=== PATIENT | male | born 1970 | race Caucasian/White ===

== ENCOUNTER 2019-10-20 06:57 | Outpatient (CLI) | payer BC ==
--- NOTE | 2019-10-20 08:23 | ULT ---
Ultrasound hepatic Doppler duplex: 10/20/2019 HISTORY: 49-year-old male with cirrhosis. TECHNIQUE: Grayscale, color-flow, and spectral analysis, of liver and associated major vessels. FINDINGS: There is signal dropout, such that there is poor visualization of intra-abdominal structures, includi ng right lobe of liver, nonvisualization of inferior vena cava, and nonvisualization of the pancreas. Gallbladder: Surgically absent Common duct: 4 mm. Liver: Nodular margins. Small right lobe. Prominent left lobe. Echogenicity within normal limits. Spleen: 14 x 5.7 x 5.9 cm. Estimated volume 245 mL. Normal hilar concavity maintained but with slight lobulation. Hepatopetal flow demonstrated in splenic vein and main portal vein. Flow demonstrated in hepatic veins. Flow demonstrated in hepatic artery, with weak signal. No free fluid identified in upper abdomen. IMPRESSION: 1. Cirrhosis. 2. Borderline or mild splenomegaly. 3. Status post cholecystectomy.
== END 2019-10-20 06:58 | disposition home or self-care (01) ==
LOC: BICULT 06:57
PROVIDERS: ATTEND Internal Medicine Gastroenterology
DX: R13.19 Other dysphagia (principal); K74.60 Unspecified cirrhosis of liver; Z90.49 Acquired absence of other specified parts of digestive tract
CPT/HCPCS: 76705

== ENCOUNTER → 2020-11-06 | Day surgery (SDC) | payer OTHER ==
[2020-11-03 14:16] VITALS: BMI 44.4
[~2020-11-06] MED LIST: Lidocaine 1% PF 5 ML VIAL ONE; Sodium Bicarbonate 2.5 MEQ/5 ML VIAL ONE
[2020-11-06 08:25] LABS: #Eosinphils 0.3 thou/uL (0.0-0.7); #Monocytes 0.3 thou/uL (0.11-0.59); %Basophils 1.1 % (0.0-1.0); %Lymphocytes 26.8 % (21.0-51.0); %Monocytes 7.5 % (0.0-10.0); %Neutrophils 56.7 % (42.0-75.0); Mean Corpuscular HGB CONC 33.9 g/dL (32.0-36.0); Mean Corpuscular Hemoglobin 34.5 pg (27.0-31.0); Platelet Count 138 thou/uL (130-400); RBC Distribution Width 12.9 % (11.5-14.5); Red Blood Cell (RBC) Count 3.48 mill/uL (4.70-6.10); White Blood Cell (WBC) Count 3.6 thou/uL (4.8-10.8)
[2020-11-06 08:29] LABS: INR-International Normal Ratio 1.1; PTT 35.4 sec (22.9-36.1); Prothrombin Time 13.8 sec (12.0-14.7)
[2020-11-06 10:25] VITALS: TEMP 97.8
[2020-11-06 10:32] VITALS: BP 133/73
[2020-11-06 12:52] LABS: RBC Count-Automated (BF) 1998 /cu.mm; WBC/Nucleated-Auto (BF) 206 uL
[2020-11-06 13:00] LABS: BF Color Pink; Body Fluid Source Ascites Body Fluid; Clarity Hazy (Clear); Tube # EDTA
[2020-11-06 13:28] LABS: BF Segmented Neutrophils 9 %; Cell Count Non Hematic 71 %; Eosinophils 2 %; Lymphocytes 16 %
== END ==
LOC: ULT 08:23
PROVIDERS: ATTEND Internal Medicine Gastroenterology
PROC: 0W9G3ZX Drainage of Peritoneal Cavity, Percutaneous Approach, Diagnostic (ICD-10-PCS; principal; 2020-11-06)
DX: K74.60 Unspecified cirrhosis of liver (principal); R18.8 Other ascites; R16.1 Splenomegaly, not elsewhere classified; I85.10 Secondary esophageal varices without bleeding; K21.9 Gastro-esophageal reflux disease without esophagitis; J45.909 Unspecified asthma, uncomplicated; F17.200 Nicotine dependence, unspecified, uncomplicated; F10.11 Alcohol abuse, in remission; Z79.899 Other long term (current) drug therapy
CPT/HCPCS: 49083; 82042; 84155; 85025; 85060; 85610; 85730; 87070; 87205; 89051; 93975

== ENCOUNTER 2020-11-13 07:59 | Outpatient (CLI) | payer OTHER ==
[2020-11-13] MEDS ORDERED: Iopamidol-370 76% 500 ML 1 ML ONE (09:20)
== END 2020-11-13 08:00 | disposition home or self-care (01) ==
LOC: BICCT 07:59
PROVIDERS: ATTEND Internal Medicine Gastroenterology
DX: K74.69 Other cirrhosis of liver (principal); R77.2 Abnormality of alphafetoprotein; K76.6 Portal hypertension; R18.8 Other ascites
CPT/HCPCS: 74170; Q9967

== ENCOUNTER 2020-11-14 | Emergency (ER) | payer BC | END 2020-11-14 21:55 | disposition left against medical advice (07) | DX: Z53.21 Procedure and treatment not carried out due to patient leaving prior to being seen by health care provider (principal) ==

== ENCOUNTER 2020-11-16 07:27 | Day surgery (SDC) | payer OTHER ==
[2020-11-15 11:58] VITALS: BMI 39.5
[2020-11-16] MEDS ORDERED: Sodium Bicarbonate 2.5 MEQ/5 ML VIAL ONE (07:36)
[2020-11-16] MEDS ORDERED: Lidocaine 1% PF 5 ML VIAL ONE (07:36)
[2020-11-16 08:08] VITALS: TEMP 98
[2020-11-16 09:02] VITALS: BP 125/74
== END 2020-11-16 08:55 | disposition home or self-care (01) ==
LOC: ULT 07:27
PROVIDERS: ATTEND Internal Medicine Gastroenterology
PROC: 0W9G3ZZ Drainage of Peritoneal Cavity, Percutaneous Approach (ICD-10-PCS; principal; 2020-11-16)
DX: K74.60 Unspecified cirrhosis of liver (principal); R18.8 Other ascites; I85.10 Secondary esophageal varices without bleeding; K21.9 Gastro-esophageal reflux disease without esophagitis; J45.909 Unspecified asthma, uncomplicated; F17.290 Nicotine dependence, other tobacco product, uncomplicated; F10.11 Alcohol abuse, in remission; Z79.899 Other long term (current) drug therapy
CPT/HCPCS: 49083

== ENCOUNTER 2020-11-26 10:02 | Emergency (ER) | payer SELFPAY, OTHER ==
[2020-11-26 11:34] LABS: #Basophils 0.1 thou/uL (0.0-0.2); #Eosinphils 0.2 thou/uL (0.0-0.7); #Lymphocytes 0.9 thou/uL (1.20-3.40); #Monocytes 0.5 thou/uL (0.11-0.59); #Neutrophils 3.7 thou/uL (1.40-6.50); %Basophils 1.2 % (0.0-1.0); %Eosinophils 3.7 % (0.0-10.0); %Lymphocytes 16.1 % (21.0-51.0); %Monocytes 10.1 % (0.0-10.0); %Neutrophils 68.9 % (42.0-75.0); Hemoglobin 13.7 g/dL (14.0-18.0); Mean Corpuscular HGB CONC 32.8 g/dL (32.0-36.0); Mean Corpuscular Hemoglobin 32.1 pg (27.0-31.0); Mean Platelet Volume 7.8 fL (7.4-10.4); Platelet Count 174 thou/uL (130-400); RBC Distribution Width 13.5 % (11.5-14.5); Red Blood Cell (RBC) Count 4.27 mill/uL (4.70-6.10); White Blood Cell (WBC) Count 5.4 thou/uL (4.8-10.8)
[2020-11-26 11:43] LABS: INR-International Normal Ratio 1.1; Prothrombin Time 14.4 sec (12.0-14.7)
[2020-11-26 11:47] LABS: ALT (SGPT) 42 U/L (8-55); AST (SGOT) 71 U/L (5-34); Albumin 3.6 g/dL (3.5-5.0); Alkaline Phosphatase 195 U/L (40-110); Anion Gap 11 mmol/L (10-20); BUN (Urea Nitrogen) 16 mg/dL (8.9-20.6); Bilirubin, Total 1.4 mg/dL (0.2-1.2); Calc. Creatinine Clearance 0 mL/min (70-130); Calcium 9.3 mg/dL (7.8-10.44); Carbon Dioxide 25 mmol/L (22-29); Chloride 97 mmol/L (98-107); Globulin 3.8 g/dL (2.4-3.5); Glucose 118 mg/dL (70-105); Lipase 41 U/L (8-78); Potassium 5.3 mmol/L (3.5-5.1); Protein, Total 7.4 g/dL (6.0-8.3); Sodium 128 mmol/L (136-145)
[2020-11-26] MEDS ORDERED: Lidocaine 1% w/Epinephrine 1:100K 20 ML VIAL ONE (13:42)
[2020-11-26] MEDS ORDERED: Bacitracin 1 PK ONE (15:07)
== END 2020-11-26 15:17 | disposition home or self-care (01) ==
LOC: ERS 10:02
DX: R18.8 Other ascites (principal); K74.60 Unspecified cirrhosis of liver; Z79.899 Other long term (current) drug therapy
CPT/HCPCS: 36415; 80053; 83690; 85025; 85610; 85730; 99284

== ENCOUNTER 2020-11-29 09:55 | Day surgery (SDC) | payer OTHER ==
[2020-11-28 13:57] VITALS: BMI 39.5
[2020-11-29] MEDS ORDERED: Sodium Bicarbonate 2.5 MEQ/5 ML VIAL ONE (10:09)
[2020-11-29] MEDS ORDERED: Albumin 25% 100 ML ONE (10:09)
[2020-11-29] MEDS ORDERED: Lidocaine 1% PF 5 ML VIAL ONE (10:09)
[2020-11-29] MEDS ORDERED: Sodium Chloride 0.9% 10 ML ONE (10:10)
[2020-11-29 11:05] VITALS: TEMP 98.1
[2020-11-29 12:04] VITALS: BP 142/76
== END 2020-11-29 11:42 | disposition home or self-care (01) ==
LOC: ULT 09:55
PROVIDERS: ATTEND Physician Assistant Medical
PROC: 0W9G3ZZ Drainage of Peritoneal Cavity, Percutaneous Approach (ICD-10-PCS; principal; 2020-11-29)
DX: K74.60 Unspecified cirrhosis of liver (principal); R18.8 Other ascites; K21.9 Gastro-esophageal reflux disease without esophagitis; J45.909 Unspecified asthma, uncomplicated; F17.200 Nicotine dependence, unspecified, uncomplicated; F10.11 Alcohol abuse, in remission
CPT/HCPCS: 49083; P9047

== ENCOUNTER → 2020-12-08 | Day surgery (SDC) | payer OTHER | LOC: ULT 11:50 | PROVIDERS: ATTEND Physician Assistant Medical | PROC: 0W9G3ZZ Drainage of Peritoneal Cavity, Percutaneous Approach (ICD-10-PCS; principal; 2020-12-08) | DX: R18.8 Other ascites (principal) | CPT/HCPCS: 49083 ==

== ENCOUNTER 2021-01-04 13:01 | Outpatient (CLI) | payer SELFPAY ==
[2021-01-05 12:07] LABS: SARS-CoV-2 PCR by NAA Not Detected (NotDetected)
== END 2021-01-04 13:02 | disposition home or self-care (01) ==
LOC: LABBT 13:01
PROVIDERS: ATTEND Internal Medicine Gastroenterology
DX: Z01.812 Encounter for preprocedural laboratory examination (principal); Z20.822 Contact with and (suspected) exposure to COVID-19
CPT/HCPCS: U0003; U0005

== ENCOUNTER 2021-01-05 16:44 | Inpatient (IN) | payer OTHER, SELFPAY ==
[2021-01-05 17:50] LABS: Hemoglobin 13.3 g/dL (14.0-18.0); Mean Corpuscular Hemoglobin 30.9 pg (27.0-31.0); Mean Corpuscular Volume 90.9 fL (78.0-98.0); Mean Platelet Volume 8.8 fL (7.4-10.4); Platelet Count 138 thou/uL (130-400); RBC Distribution Width 15.2 % (11.5-14.5); Red Blood Cell (RBC) Count 4.31 mill/uL (4.70-6.10)
[2021-01-05 18:11] LABS: Band 5 % (5-11); Eosinophils 5 % (0-10); Lymphocytes 21 % (21-51); MDiff Complete? YES; Monocytes 8 % (0-10); Neutrophil 60 % (42-75); Platelet Morphology Comment Appears Adequate; RBC Morphology Normal; Reactive Lymphocytes 1 % (0-10)
[2021-01-05 18:12] LABS: ALT (SGPT) 37 U/L (8-55); AST (SGOT) 61 U/L (5-34); Alkaline Phosphatase 240 U/L (40-110); Anion Gap 18 mmol/L (10-20); BUN (Urea Nitrogen) 52 mg/dL (8.9-20.6); Bilirubin, Total 1.8 mg/dL (0.2-1.2); Calc. Creatinine Clearance 0 mL/min (70-130); Carbon Dioxide 18 mmol/L (22-29); Chloride 92 mmol/L (98-107); Globulin 3.7 g/dL (2.4-3.5); Glucose 116 mg/dL (70-105); Potassium 6.3 mmol/L (3.5-5.1); Protein, Total 7.7 g/dL (6.0-8.3); Sodium 122 mmol/L (136-145)
[2021-01-05] MEDS ORDERED: Dextrose 50% Abboject 50 ML SYRINGE ONE (19:35)
[2021-01-05] MEDS ORDERED: Insulin Regular 300 UNITS/3 ML VIAL ONE (19:35)
[2021-01-05] MEDS ORDERED: Sodium Bicarb 50 MEQ/50 ML Abboject 8.4% SYRINGE ONE (19:35)
[2021-01-05 22:31] LABS: Anion Gap 17 mmol/L (10-20); BUN (Urea Nitrogen) 51 mg/dL (8.9-20.6); Calc. Creatinine Clearance 0 mL/min (70-130); Calcium 9.5 mg/dL (7.8-10.44); Carbon Dioxide 20 mmol/L (22-29); Chloride 94 mmol/L (98-107); Potassium 4.6 mmol/L (3.5-5.1); Sodium 126 mmol/L (136-145)
[2021-01-05 22:37] LABS: Glucose 50 mg/dL (70-105)
[2021-01-06 02:26] VITALS: BMI 36.1
[2021-01-06] MEDS ORDERED: Acetaminophen 500 MG TAB PO PRN (06:12)
[2021-01-06 06:17] LABS: ALT (SGPT) 31 U/L (8-55); AST (SGOT) 54 U/L (5-34); Albumin 3.5 g/dL (3.5-5.0); Alkaline Phosphatase 219 U/L (40-110); Anion Gap 19 mmol/L (10-20); BUN (Urea Nitrogen) 50 mg/dL (8.9-20.6); Bilirubin, Total 1.2 mg/dL (0.2-1.2); Calc. Creatinine Clearance 58 mL/min (70-130); Calcium 9.2 mg/dL (7.8-10.44); Carbon Dioxide 21 mmol/L (22-29); Chloride 93 mmol/L (98-107); Globulin 3.3 g/dL (2.4-3.5); Glucose 139 mg/dL (70-105); Potassium 5.5 mmol/L (3.5-5.1); Protein, Total 6.8 g/dL (6.0-8.3); Sodium 127 mmol/L (136-145)
[2021-01-06 06:28] LABS: #Eosinphils 0.1 thou/uL (0.0-0.7); #Lymphocytes 0.8 thou/uL (1.20-3.40); #Monocytes 0.4 thou/uL (0.11-0.59); #Neutrophils 2.1 thou/uL (1.40-6.50); %Basophils 0.6 % (0.0-1.0); %Eosinophils 3.9 % (0.0-10.0); %Lymphocytes 23.7 % (21.0-51.0); %Monocytes 10.5 % (0.0-10.0); %Neutrophils 61.4 % (42.0-75.0); Mean Corpuscular Hemoglobin 31.1 pg (27.0-31.0); Mean Corpuscular Volume 91.6 fL (78.0-98.0); Mean Platelet Volume 8.8 fL (7.4-10.4); Platelet Count 96 thou/uL (130-400); Platelet Morphology Comment Appears Decreased; RBC Distribution Width 15.2 % (11.5-14.5); Red Blood Cell (RBC) Count 3.84 mill/uL (4.70-6.10); White Blood Cell (WBC) Count 3.3 thou/uL (4.8-10.8)
[2021-01-06] MEDS: Ondansetron PF 4 MG/2 ML Vial IVP PRN ×2 (07:59→13:55)
[2021-01-06] MEDS ORDERED: FLU VACC QS2021-22(6MOS UP)/PF 60 MCG/0.5 ML SYRINGE IM ONE (09:00)
[2021-01-06] MEDS ORDERED: Sodium Chloride 0.9% 500 ML IV SCH ×2 (12:45→13:45)
[2021-01-06 14:42] LABS: Anion Gap 16 mmol/L (10-20); BUN (Urea Nitrogen) 53 mg/dL (8.9-20.6); Calc. Creatinine Clearance 63 mL/min (70-130); Calcium 8.6 mg/dL (7.8-10.44); Carbon Dioxide 21 mmol/L (22-29); Chloride 92 mmol/L (98-107); Glucose 140 mg/dL (70-105); Potassium 4.5 mmol/L (3.5-5.1); Sodium 124 mmol/L (136-145)
[2021-01-06] MEDS ORDERED: Midodrine HCl 5 MG TAB PO SCH ×2 (15:51→16:15)
[2021-01-06] MEDS ORDERED: Albumin 25% 25 GM/100 ML BOT IVPB SCH (16:00)
[2021-01-06] MEDS ORDERED: Octreotide Acetate 1,250 MCG in Sodium Chloride 0.9% 250 ML 250 ML IVPB SCH (16:00)
[2021-01-06] MEDS ORDERED: Sodium Chloride 0.45% 1,000 ML IV SCH (17:30)
[2021-01-06] MEDS: Midodrine HCl 5 MG TAB PO SCH (20:55)
[2021-01-06 22:15] LABS: Anion Gap 11 mmol/L (10-20); BUN (Urea Nitrogen) 45 mg/dL (8.9-20.6); Calc. Creatinine Clearance 70 mL/min (70-130); Calcium 9.3 mg/dL (7.8-10.44); Carbon Dioxide 22 mmol/L (22-29); Chloride 92 mmol/L (98-107); Glucose 109 mg/dL (70-105); Sodium 121 mmol/L (136-145)
[2021-01-07 07:53] LABS: Anion Gap 10 mmol/L (10-20); BUN (Urea Nitrogen) 43 mg/dL (8.9-20.6); Calc. Creatinine Clearance 82 mL/min (70-130); Calcium 9.2 mg/dL (7.8-10.44); Carbon Dioxide 21 mmol/L (22-29); Chloride 95 mmol/L (98-107); Glucose 121 mg/dL (70-105); Sodium 122 mmol/L (136-145)
[2021-01-07 07:58] LABS: #Eosinphils 0.1 thou/uL (0.0-0.7); #Lymphocytes 0.6 thou/uL (1.20-3.40); #Monocytes 0.3 thou/uL (0.11-0.59); #Neutrophils 1.4 thou/uL (1.40-6.50); %Basophils 0.8 % (0.0-1.0); %Lymphocytes 25.8 % (21.0-51.0); %Monocytes 11.6 % (0.0-10.0); %Neutrophils 57.8 % (42.0-75.0); Hemoglobin 10.3 g/dL (14.0-18.0); Mean Corpuscular HGB CONC 34.6 g/dL (32.0-36.0); Mean Corpuscular Hemoglobin 31.3 pg (27.0-31.0); Mean Corpuscular Volume 90.6 fL (78.0-98.0); Mean Platelet Volume 9.2 fL (7.4-10.4); Platelet Count 86 thou/uL (130-400); RBC Distribution Width 15.3 % (11.5-14.5); White Blood Cell (WBC) Count 2.5 thou/uL (4.8-10.8)
[2021-01-07] MEDS: Midodrine HCl 5 MG TAB PO SCH ×3 (08:02→21:34)
[2021-01-07] MEDS: Furosemide 20 MG/2 ML VIAL SLOW IVP SCH ×2 (08:06→10:23)
[2021-01-07] MEDS: Ondansetron PF 4 MG/2 ML Vial IVP PRN ×3 (08:06→21:35)
[2021-01-07] MEDS ORDERED: Furosemide 20 MG/2 ML VIAL SLOW IVP SCH (11:45)
[2021-01-07] MEDS ORDERED: Octreotide Acetate 1,250 MCG in Sodium Chloride 0.9% 250 ML 250 ML IVPB SCH (11:45)
[2021-01-07] MEDS: traMADol HCl 50 MG TAB PO PRN ×2 (16:21→23:33)
[2021-01-07 21:30] LABS: BUN (Urea Nitrogen) 38 mg/dL (8.9-20.6); Calc. Creatinine Clearance 79 mL/min (70-130); Calcium 9.4 mg/dL (7.8-10.44); Carbon Dioxide 20 mmol/L (22-29); Chloride 95 mmol/L (98-107); Glucose 144 mg/dL (70-105)
[2021-01-07 22:42] LABS: Sodium 127 mmol/L (136-145)
[2021-01-07 23:08] LABS: Anion Gap 16 mmol/L (10-20)
[2021-01-08] MEDS: Ondansetron PF 4 MG/2 ML Vial IVP PRN ×2 (04:01→12:20)
[2021-01-08] MEDS: traMADol HCl 50 MG TAB PO PRN ×2 (05:35→12:20)
[2021-01-08 06:55] LABS: #Eosinphils 0.1 thou/uL (0.0-0.7); #Lymphocytes 0.7 thou/uL (1.20-3.40); #Monocytes 0.3 thou/uL (0.11-0.59); #Neutrophils 1.2 thou/uL (1.40-6.50); %Basophils 0.5 % (0.0-1.0); %Eosinophils 3.9 % (0.0-10.0); %Lymphocytes 30.4 % (21.0-51.0); %Monocytes 13.7 % (0.0-10.0); %Neutrophils 51.5 % (42.0-75.0); Mean Corpuscular HGB CONC 34.3 g/dL (32.0-36.0); Mean Corpuscular Hemoglobin 31.3 pg (27.0-31.0); Mean Corpuscular Volume 91.2 fL (78.0-98.0); Mean Platelet Volume 9.5 fL (7.4-10.4); Platelet Count 86 thou/uL (130-400); RBC Distribution Width 15.2 % (11.5-14.5); Red Blood Cell (RBC) Count 3.53 mill/uL (4.70-6.10); White Blood Cell (WBC) Count 2.4 thou/uL (4.8-10.8)
[2021-01-08 07:11] LABS: Anion Gap 12 mmol/L (10-20); BUN (Urea Nitrogen) 42 mg/dL (8.9-20.6); Calc. Creatinine Clearance 84 mL/min (70-130); Carbon Dioxide 23 mmol/L (22-29); Chloride 96 mmol/L (98-107); Glucose 124 mg/dL (70-105); Potassium 4.2 mmol/L (3.5-5.1); Sodium 127 mmol/L (136-145)
[2021-01-08] MEDS: Midodrine HCl 5 MG TAB PO SCH (07:50)
[2021-01-08 08:43] LABS: INR-International Normal Ratio 1.1; PTT 39.1 sec (22.9-36.1); Prothrombin Time 14.5 sec (12.0-14.7)
[2021-01-08] MEDS ORDERED: Sodium Bicarbonate 2.5 MEQ/5 ML VIAL ONE (13:03)
[2021-01-08] MEDS ORDERED: Lidocaine 1% PF 5 ML VIAL ONE (13:03)
[2021-01-08] MEDS ORDERED: Albumin 25% 25 GM/100 ML BOT IVPB SCH (15:00)
[2021-01-08 15:21] LABS: RBC Count-Automated (BF) 2061 /cu.mm; WBC/Nucleated-Auto (BF) 318 uL
[2021-01-08 15:24] LABS: Body Fluid Source Ascites Body Fluid
[2021-01-08 15:25] LABS: BF Color Yellow; Clarity Cloudy/Turbid (Clear); Tube # EDTA
[2021-01-08 15:55] LABS: Anion Gap 16 mmol/L (10-20); BUN (Urea Nitrogen) 38 mg/dL (8.9-20.6); Calc. Creatinine Clearance 86 mL/min (70-130); Calcium 9.3 mg/dL (7.8-10.44); Carbon Dioxide 21 mmol/L (22-29); Chloride 95 mmol/L (98-107); Glucose 125 mg/dL (70-105); Potassium 4.3 mmol/L (3.5-5.1); Sodium 128 mmol/L (136-145)
[2021-01-08 15:56] LABS: Fluid, Protein 1.2 g/dL (Not Available)
[2021-01-08 16:03] LABS: Cell Count Non Hematic 70 %
[2021-01-08 16:04] LABS: BF Segmented Neutrophils 1 %; Lymphocytes 29 %
[2021-01-08 16:52] VITALS: BP 127/67; TEMP 98.8
== END 2021-01-08 18:16 | disposition home or self-care (01) | DRG 432 ==
LOC: ERS 16:44 → 2SW 23:29 → OBSVTOIN 01-06 15:39
PROVIDERS: ADMIT Internal Medicine; ATTEND Internal Medicine
PROC: 0W9G3ZZ Drainage of Peritoneal Cavity, Percutaneous Approach (ICD-10-PCS; principal; 2021-01-08)
DX: K70.31 Alcoholic cirrhosis of liver with ascites (principal); K76.7 Hepatorenal syndrome; N17.9 Acute kidney failure, unspecified; E87.1 Hypo-osmolality and hyponatremia; D61.818 Other pancytopenia; N18.4 Chronic kidney disease, stage 4 (severe); E87.2 Acidosis; K72.90 Hepatic failure, unspecified without coma; Z20.822 Contact with and (suspected) exposure to COVID-19; E16.2 Hypoglycemia, unspecified; D63.1 Anemia in chronic kidney disease; E87.5 Hyperkalemia; Z90.49 Acquired absence of other specified parts of digestive tract; Z98.890 Other specified postprocedural states; Z79.899 Other long term (current) drug therapy
CPT/HCPCS: 36415; 36416; 49083; 76705; 80048; 80053; 82042; 82140; 83615; 84157; 85025; 85060; 85610; 85730; 87070; 87205; 89051; 93005; 96374; 96375; 96376; G0378; J1815; J1940; J2354; J2405; J7030; J7050; P9047

== ENCOUNTER 2021-01-15 09:46 | Inpatient (IN) | payer SELFPAY ==
[2021-01-15] MEDS ORDERED: Ondansetron PF 4 MG/2 ML Vial ONE ×3 (11:11→22:56)
[2021-01-15 11:33] LABS: INR-International Normal Ratio 1.1; Prothrombin Time 14.3 sec (12.0-14.7)
[2021-01-15 11:34] LABS: PTT 35.7 sec (22.9-36.1)
[2021-01-15 11:52] LABS: ALT (SGPT) 39 U/L (8-55); AST (SGOT) 67 U/L (5-34); Albumin 4.1 g/dL (3.5-5.0); Alkaline Phosphatase 257 U/L (40-110); Anion Gap 14 mmol/L (10-20); BUN (Urea Nitrogen) 59 mg/dL (8.9-20.6); Bilirubin, Total 1.2 mg/dL (0.2-1.2); Calc. Creatinine Clearance 0 mL/min (70-130); Calcium 9.5 mg/dL (7.8-10.44); Carbon Dioxide 21 mmol/L (22-29); Chloride 93 mmol/L (98-107); Globulin 3.4 g/dL (2.4-3.5); Glucose 115 mg/dL (70-105); Potassium 4.8 mmol/L (3.5-5.1); Protein, Total 7.5 g/dL (6.0-8.3); Sodium 123 mmol/L (136-145)
[2021-01-15 12:59] LABS: #Basophils 0.1 thou/uL (0.0-0.2); #Eosinphils 0.1 thou/uL (0.0-0.7); #Lymphocytes 0.9 thou/uL (1.20-3.40); #Monocytes 0.8 thou/uL (0.11-0.59); #Neutrophils 4.6 thou/uL (1.40-6.50); %Basophils 1.1 % (0.0-1.0); %Eosinophils 1.6 % (0.0-10.0); %Lymphocytes 13.4 % (21.0-51.0); %Monocytes 12.2 % (0.0-10.0); %Neutrophils 71.7 % (42.0-75.0); Hemoglobin 11.1 g/dL (14.0-18.0); Mean Corpuscular Hemoglobin 30.6 pg (27.0-31.0); Platelet Count 122 thou/uL (130-400); RBC Distribution Width 15.7 % (11.5-14.5); Red Blood Cell (RBC) Count 3.62 mill/uL (4.70-6.10); White Blood Cell (WBC) Count 6.4 thou/uL (4.8-10.8)
[2021-01-15] MEDS ORDERED: Vancomycin 1 GM/200 ML BAG ONE (14:07)
[2021-01-15] MEDS ORDERED: Piperacillin/Tazobactam 3.375 GM VIAL ONE (14:41)
[2021-01-15] MEDS ORDERED: Pantoprazole 40 MG VIAL ONE (14:41)
[2021-01-15] MEDS ORDERED: Octreotide Acetate 1,250 MCG in Sodium Chloride 0.9% 250 ML 250 ML IVPB SCH (14:45)
[2021-01-15] MEDS ORDERED: Albumin 25% 25 GM/100 ML BOT IVPB SCH ×2 (15:45→21:00)
[2021-01-15] MEDS ORDERED: Acetaminophen 325 MG TAB PO PRN (15:54)
[2021-01-15] MEDS ORDERED: Pantoprazole 40 MG VIAL IVP SCH ×2 (16:00→21:00)
[2021-01-15] MEDS ORDERED: Pantoprazole 80 MG in Sodium Chloride 0.9% 100 ML IVPB SCH (16:00)
[2021-01-15 16:34] LABS: Hemoglobin 10.6 g/dL (14.0-18.0)
[2021-01-15] MEDS: Octreotide Acetate 1,250 MCG in Sodium Chloride 0.9% 250 ML 250 ML IVPB SCH (18:40)
[2021-01-15 19:01] LABS: SARS-CoV-2 NAA Rapid Test Not Detected (NotDetected)
[2021-01-15] MEDS ORDERED: cefTRIAXone\\ROCEPHIN 1 GM VIAL ONE (19:56)
[2021-01-15] MEDS: cefTRIAXone\\ROCEPHIN 1 GM in Sodium Chloride 0.9% 100 ML IVPB SCH (20:04)
[2021-01-15] MEDS: Sodium Chloride 0.9% 1,000 ML IV SCH (20:04)
[2021-01-15 21:28] LABS: Bacteria/HPF None Seen HPF (None Seen); Bilirubin Negative (Negative); Blood, Urine Negative (Negative); Clarity Clear (Clear); Glucose, Urine (Dipstick) 30 mg/dL (Negative); Ketone, Urine Trace mg/dL (Negative); Leukocyte Negative Leu/uL (Negative); Mucous/LPF Rare LPF (<2+); Nitrite Negative (Negative); Protein, Urine (Dipstick) 10 mg/dL (Neg-Trace); RBC/HPF 0-3 HPF (0-3); Specific Gravity, Urine 1.023 (1.002-1.036); Squamous Epithelial 0-3 HPF (0-3); Urobilinogen Normal mg/dL (Less than 2); WBC/HPF 0-3 HPF (0-3); pH, Urine 5.5 (5.0-9.0)
[2021-01-15 21:41] LABS: Creatinine, Urine 131.13 mg/dL (63-166); Sodium, Urine Less than 20 mmol/L (Not Available); Urea Nitrogen, Random Urine 1116 mg/dl
[2021-01-15 21:46] LABS: Urine Culture Reflex No No
[2021-01-15] MEDS: Ondansetron PF 4 MG/2 ML Vial IVP PRN (22:59)
[2021-01-16] MEDS: Albumin 25% 25 GM/100 ML BOT IVPB SCH ×3 (02:10→21:07)
[2021-01-16] MEDS ORDERED: Azithromycin 500 MG VIAL ONE (05:28)
[2021-01-16] MEDS ORDERED: Ondansetron PF 4 MG/2 ML Vial ONE ×3 (05:28→14:53)
[2021-01-16] MEDS: Ondansetron PF 4 MG/2 ML Vial IVP PRN ×2 (06:00→19:50)
[2021-01-16 06:36] LABS: #Eosinphils 0.1 thou/uL (0.0-0.7); #Lymphocytes 0.8 thou/uL (1.20-3.40); #Monocytes 0.5 thou/uL (0.11-0.59); #Neutrophils 1.8 thou/uL (1.40-6.50); %Eosinophils 3.1 % (0.0-10.0); %Lymphocytes 24.9 % (21.0-51.0); %Monocytes 14.3 % (0.0-10.0); %Neutrophils 56.8 % (42.0-75.0); Hemoglobin 9.3 g/dL (14.0-18.0); Mean Corpuscular HGB CONC 33.9 g/dL (32.0-36.0); Mean Corpuscular Hemoglobin 30.8 pg (27.0-31.0); Mean Corpuscular Volume 90.9 fL (78.0-98.0); Mean Platelet Volume 9.2 fL (7.4-10.4); Platelet Count 84 thou/uL (130-400); RBC Distribution Width 15.8 % (11.5-14.5); Red Blood Cell (RBC) Count 3.03 mill/uL (4.70-6.10); White Blood Cell (WBC) Count 3.1 thou/uL (4.8-10.8)
[2021-01-16 06:46] LABS: INR-International Normal Ratio 1.2; Prothrombin Time 15.3 sec (12.0-14.7)
[2021-01-16 06:59] LABS: ALT (SGPT) 27 U/L (8-55); AST (SGOT) 46 U/L (5-34); Albumin 3.8 g/dL (3.5-5.0); Alkaline Phosphatase 185 U/L (40-110); Anion Gap 13 mmol/L (10-20); BUN (Urea Nitrogen) 64 mg/dL (8.9-20.6); Bilirubin, Total 0.9 mg/dL (0.2-1.2); Calc. Creatinine Clearance 69 mL/min (70-130); Calcium 8.9 mg/dL (7.8-10.44); Carbon Dioxide 19 mmol/L (22-29); Chloride 97 mmol/L (98-107); Globulin 2.5 g/dL (2.4-3.5); Glucose 128 mg/dL (70-105); Potassium 4.6 mmol/L (3.5-5.1); Protein, Total 6.3 g/dL (6.0-8.3); Sodium 124 mmol/L (136-145)
[2021-01-16] MEDS ORDERED: Fentanyl 100 MCG/2 ML VIAL ONE (09:16)
[2021-01-16] MEDS ORDERED: Ketamine 50 MG/ML (10ML VIAL) ONE (09:18)
[2021-01-16] MEDS ORDERED: PROPOFOL 200 MG/20 ML VIAL ONE (09:31)
[2021-01-16] MEDS ORDERED: Lidocaine 1% PF 5 ML VIAL ONE (09:31)
[2021-01-16] MEDS ORDERED: Promethazine HCl 25 MG/ML VIAL ONE (09:57)
[2021-01-16] MEDS ORDERED: Promethazine HCl 25 MG/ML VIAL IM PRN (10:03)
[2021-01-16] MEDS ORDERED: Promethazine HCl 25 MG/ML VIAL IVPB PRN (10:03)
[2021-01-16] MEDS ORDERED: Ondansetron HCl/PF 4 MG/2 ML Vial IVP PRN (10:03)
[2021-01-16] MEDS ORDERED: HYDROmorphone 2 MG/ML VIAL SLOW IVP PRN (10:03)
[2021-01-16] MEDS ORDERED: HYDROmorphone 0.5 MG/0.5 ML SYRINGE ONE ×4 (10:29→18:12)
[2021-01-16 15:39] LABS: Hemoglobin 9.9 g/dL (14.0-18.0)
[2021-01-16] MEDS: Sodium Chloride 0.9% 1,000 ML IV SCH ×2 (19:00)
[2021-01-16] MEDS: Pantoprazole 40 MG VIAL IVP SCH ×2 (21:06→21:07)
[2021-01-16] MEDS: cefTRIAXone\\ROCEPHIN 1 GM in Sodium Chloride 0.9% 100 ML IVPB SCH (21:12)
[2021-01-17] MEDS: Ondansetron PF 4 MG/2 ML Vial IVP PRN ×3 (01:26→18:55)
[2021-01-17] MEDS: Sodium Chloride 0.9% 1,000 ML IV SCH ×2 (06:09→20:54)
[2021-01-17] MEDS: Pantoprazole 40 MG VIAL IVP SCH ×2 (08:27→20:50)
[2021-01-17 08:56] LABS: #Eosinphils 0.1 thou/uL (0.0-0.7); #Lymphocytes 0.8 thou/uL (1.20-3.40); #Monocytes 0.4 thou/uL (0.11-0.59); %Basophils 0.8 % (0.0-1.0); %Lymphocytes 24.8 % (21.0-51.0); %Monocytes 10.9 % (0.0-10.0); %Neutrophils 59.6 % (42.0-75.0); Hemoglobin 9.2 g/dL (14.0-18.0); Mean Corpuscular HGB CONC 34.6 g/dL (32.0-36.0); Mean Corpuscular Hemoglobin 31.3 pg (27.0-31.0); Mean Corpuscular Volume 90.6 fL (78.0-98.0); Mean Platelet Volume 9.4 fL (7.4-10.4); Platelet Count 90 thou/uL (130-400); RBC Distribution Width 15.6 % (11.5-14.5); Red Blood Cell (RBC) Count 2.93 mill/uL (4.70-6.10); White Blood Cell (WBC) Count 3.4 thou/uL (4.8-10.8)
[2021-01-17 09:04] LABS: Anion Gap 12 mmol/L (10-20); BUN (Urea Nitrogen) 50 mg/dL (8.9-20.6); Calc. Creatinine Clearance 83 mL/min (70-130); Calcium 8.5 mg/dL (7.8-10.44); Carbon Dioxide 20 mmol/L (22-29); Chloride 99 mmol/L (98-107); Glucose 116 mg/dL (70-105); Magnesium 2.2 mg/dL (1.6-2.6); Potassium 4.9 mmol/L (3.5-5.1); Sodium 126 mmol/L (136-145)
[2021-01-17] MEDS ORDERED: Albumin 25% 25 GM/100 ML BOT IVPB SCH (09:30)
[2021-01-17] MEDS: traMADol HCl 50 MG TAB PO PRN ×2 (11:26→20:53)
[2021-01-17] MEDS ORDERED: Promethazine HCl 6.25 MG in Sodium Chloride 0.9% 50 ML IVPB PRN (14:05)
[2021-01-17 16:35] LABS: RBC Count-Automated (BF) 2242 /cu.mm; WBC/Nucleated-Auto (BF) 154 /cu.mm
[2021-01-17 16:43] LABS: BF Color Pink; Body Fluid Source Peritoneal Fluid; Clarity Cloudy/Turbid (Clear); Tube # EDTA
[2021-01-17 16:47] LABS: BF Segmented Neutrophils 7 %; Cell Count Non Hematic 52 %; Eosinophils 1 %; Lymphocytes 39 %
[2021-01-17] MEDS: cefTRIAXone\\ROCEPHIN 1 GM in Sodium Chloride 0.9% 100 ML IVPB SCH (20:49)
[2021-01-17] MEDS: Octreotide Acetate 1,250 MCG in Sodium Chloride 0.9% 250 ML 250 ML IVPB SCH (22:14)
[2021-01-18] MEDS: Ondansetron PF 4 MG/2 ML Vial IVP PRN ×3 (00:50→18:37)
[2021-01-18] MEDS: traMADol HCl 50 MG TAB PO PRN ×4 (03:02→21:53)
[2021-01-18 04:52] LABS: #Eosinphils 0.1 thou/uL (0.0-0.7); #Lymphocytes 0.8 thou/uL (1.20-3.40); #Monocytes 0.4 thou/uL (0.11-0.59); #Neutrophils 2.4 thou/uL (1.40-6.50); %Basophils 1.1 % (0.0-1.0); %Eosinophils 3.8 % (0.0-10.0); %Monocytes 9.2 % (0.0-10.0); %Neutrophils 63.9 % (42.0-75.0); Hemoglobin 8.9 g/dL (14.0-18.0); Mean Corpuscular Hemoglobin 30.2 pg (27.0-31.0); Mean Corpuscular Volume 91.5 fL (78.0-98.0); Mean Platelet Volume 8.7 fL (7.4-10.4); Platelet Count 97 thou/uL (130-400); RBC Distribution Width 15.7 % (11.5-14.5); Red Blood Cell (RBC) Count 2.94 mill/uL (4.70-6.10); White Blood Cell (WBC) Count 3.8 thou/uL (4.8-10.8)
[2021-01-18 05:14] LABS: Anion Gap 12 mmol/L (10-20); BUN (Urea Nitrogen) 36 mg/dL (8.9-20.6); Calc. Creatinine Clearance 94 mL/min (70-130); Calcium 8.7 mg/dL (7.8-10.44); Carbon Dioxide 17 mmol/L (22-29); Chloride 101 mmol/L (98-107); Glucose 119 mg/dL (70-105); Potassium 4.7 mmol/L (3.5-5.1); Sodium 125 mmol/L (136-145)
[2021-01-18] MEDS: Pantoprazole 40 MG VIAL IVP SCH (08:19)
[2021-01-18] MEDS: Nadolol 40 MG TAB PO SCH (08:21)
[2021-01-18] MEDS: Sodium Chloride 0.9% 1,000 ML IV SCH (17:41)
[2021-01-18] MEDS: cefTRIAXone\\ROCEPHIN 1 GM in Sodium Chloride 0.9% 100 ML IVPB SCH (18:35)
[2021-01-18] MEDS: Octreotide Acetate 1,250 MCG in Sodium Chloride 0.9% 250 ML 250 ML IVPB SCH (23:57)
[2021-01-19] MEDS: Ondansetron PF 4 MG/2 ML Vial IVP PRN ×3 (00:57→13:40)
[2021-01-19 05:03] LABS: Mean Corpuscular HGB CONC 34.1 g/dL (32.0-36.0); Mean Corpuscular Hemoglobin 31.5 pg (27.0-31.0); Mean Corpuscular Volume 92.3 fL (78.0-98.0); Mean Platelet Volume 8.7 fL (7.4-10.4); Platelet Count 101 thou/uL (130-400); Red Blood Cell (RBC) Count 2.85 mill/uL (4.70-6.10); White Blood Cell (WBC) Count 4.4 thou/uL (4.8-10.8)
[2021-01-19 05:10] LABS: Anion Gap 9 mmol/L (10-20); BUN (Urea Nitrogen) 35 mg/dL (8.9-20.6); Calc. Creatinine Clearance 84 mL/min (70-130); Calcium 8.8 mg/dL (7.8-10.44); Carbon Dioxide 19 mmol/L (22-29); Chloride 102 mmol/L (98-107); Glucose 129 mg/dL (70-105); Sodium 125 mmol/L (136-145)
[2021-01-19] MEDS: traMADol HCl 50 MG TAB PO PRN ×2 (05:28→12:15)
[2021-01-19] MEDS ORDERED: FLU VACC QS2021-22(6MOS UP)/PF 60 MCG/0.5 ML SYRINGE IM ONE (09:00)
[2021-01-19] MEDS: Nadolol 40 MG TAB PO SCH (09:21)
[2021-01-19 13:16] VITALS: BP 116/58; TEMP 98.1
== END 2021-01-19 15:35 | disposition home or self-care (01) | DRG 432 ==
LOC: ERS 09:46 → ERHOLD 14:57 → IMCU/EMU 01-16 18:43 → 2NO 01-17 15:37
PROVIDERS: ADMIT Internal Medicine; ATTEND Internal Medicine
PROC: 06L38CZ Occlusion of Esophageal Vein with Extraluminal Device, Via Natural or Artificial Opening Endoscopic (ICD-10-PCS; principal; 2021-01-16)
PROC: 0W9G3ZZ Drainage of Peritoneal Cavity, Percutaneous Approach (ICD-10-PCS; 2021-01-17)
DX: K70.31 Alcoholic cirrhosis of liver with ascites (principal); I85.11 Secondary esophageal varices with bleeding; Z20.822 Contact with and (suspected) exposure to COVID-19; K76.7 Hepatorenal syndrome; N17.9 Acute kidney failure, unspecified; D61.818 Other pancytopenia; K76.6 Portal hypertension; E87.0 Hyperosmolality and hypernatremia; E87.2 Acidosis; N18.4 Chronic kidney disease, stage 4 (severe); I95.9 Hypotension, unspecified; K31.89 Other diseases of stomach and duodenum; K29.80 Duodenitis without bleeding; F12.10 Cannabis abuse, uncomplicated; F17.210 Nicotine dependence, cigarettes, uncomplicated; I12.9 Hypertensive chronic kidney disease with stage 1 through stage 4 chronic kidney disease, or unspecified chronic kidney disease; B19.20 Unspecified viral hepatitis C without hepatic coma; K72.90 Hepatic failure, unspecified without coma; Z90.49 Acquired absence of other specified parts of digestive tract; Z79.899 Other long term (current) drug therapy
CPT/HCPCS: 36415; 49083; 76700; 80048; 80053; 81001; 82570; 83735; 84300; 84540; 84560; 85025; 85027; 85060; 85610; 85730; 86850; 86900; 86901; 87070; 87205; 89051; 96365; 96367; 96375; 96376; C9113; J0456; J0696; J1170; J2354; J2405; J2543; J2550; J2704; J3010; J3370; J3490; J7050; P9047; U0002

== ENCOUNTER 2021-02-01 16:19 | Inpatient (IN) | payer SELFPAY, OTHER ==
[2021-02-01 16:59] LABS: #Eosinphils 0.1 thou/uL (0.0-0.7); #Lymphocytes 0.8 thou/uL (1.20-3.40); #Monocytes 0.7 thou/uL (0.11-0.59); #Neutrophils 7.6 thou/uL (1.40-6.50); %Basophils 0.1 % (0.0-1.0); %Lymphocytes 8.7 % (21.0-51.0); %Monocytes 7.4 % (0.0-10.0); %Neutrophils 82.9 % (42.0-75.0); Hemoglobin 10.3 g/dL (14.0-18.0); Mean Corpuscular HGB CONC 34.6 g/dL (32.0-36.0); Mean Corpuscular Volume 89.5 fL (78.0-98.0); Mean Platelet Volume 8.6 fL (7.4-10.4); Platelet Count 171 thou/uL (130-400); RBC Distribution Width 17.2 % (11.5-14.5); Red Blood Cell (RBC) Count 3.32 mill/uL (4.70-6.10); White Blood Cell (WBC) Count 9.2 thou/uL (4.8-10.8)
[2021-02-01 17:10] LABS: INR-International Normal Ratio 1.1; Prothrombin Time 14.8 sec (12.0-14.7)
[2021-02-01 17:11] LABS: PTT 34.2 sec (22.9-36.1)
[2021-02-01 17:19] LABS: Anion Gap 15 mmol/L (10-20); BUN (Urea Nitrogen) 78 mg/dL (8.9-20.6); Calc. Creatinine Clearance 0 mL/min (70-130); Carbon Dioxide 16 mmol/L (22-29); Chloride 91 mmol/L (98-107); Potassium 4.8 mmol/L (3.5-5.1)
[2021-02-01 17:20] LABS: ALT (SGPT) 69 U/L (8-55); AST (SGOT) 123 U/L (5-34); Albumin 3.8 g/dL (3.5-5.0); Alkaline Phosphatase 325 U/L (40-110); Bilirubin, Total 1.1 mg/dL (0.2-1.2); Calcium 9.3 mg/dL (7.8-10.44); Glucose 150 mg/dL (70-105); Protein, Total 7.8 g/dL (6.0-8.3)
[2021-02-01 17:55] LABS: Sodium 117 mmol/L (136-145)
[2021-02-01] MEDS ORDERED: Pantoprazole 40 MG VIAL IVP SCH (18:00)
[2021-02-01] MEDS ORDERED: cefTRIAXone\\ROCEPHIN 1 GM in Sodium Chloride 0.9% 100 ML IVPB SCH (18:15)
[2021-02-01] MEDS ORDERED: Water For Inject, Bacteriostat 30 ML ONE (18:42)
[2021-02-01] MEDS ORDERED: cefTRIAXone\\ROCEPHIN 1 GM VIAL ONE (18:48)
[2021-02-01] MEDS ORDERED: Ondansetron PF 4 MG/2 ML Vial ONE (18:48)
[2021-02-01] MEDS ORDERED: Octreotide Acetate 100 MCG/ML VIAL ONE (18:48)
[2021-02-01] MEDS ORDERED: Promethazine HCl 25 MG/ML VIAL ONE (18:58)
[2021-02-01] MEDS ORDERED: Octreotide Acetate 1,250 MCG in Sodium Chloride 0.9% 250 ML 250 ML IVPB SCH (19:00)
[2021-02-01] MEDS ORDERED: Sodium Chloride 0.9% 1,000 ML IV ONE (19:15)
[2021-02-01] MEDS ORDERED: Promethazine HCl 12.5 MG in Sodium Chloride 0.9% 50 ML IVPB SCH (19:15)
[2021-02-01] MEDS ORDERED: Sodium Bicarb 50 MEQ/50 ML Abboject 8.4% SYRINGE ONE (20:58)
[2021-02-01] MEDS ORDERED: Octreotide Acetate 50 MCG/ML AMP ONE (20:59)
[2021-02-01] MEDS ORDERED: Albumin 25% 25 GM/100 ML BOT IVPB SCH (22:15)
[2021-02-01 23:15] LABS: SARS-CoV-2 NAA Rapid Test Not Detected (NotDetected)
[2021-02-02 00:04] LABS: Hemoglobin 8.4 g/dL (14.0-18.0)
[2021-02-02 00:12] LABS: Sodium 120 mmol/L (136-145)
[2021-02-02] MEDS: Midodrine HCl 5 MG TAB PO SCH ×4 (00:33→22:35)
[2021-02-02 00:39] VITALS: BMI 33.8
[2021-02-02 04:09] LABS: ALT (SGPT) 52 U/L (8-55); AST (SGOT) 85 U/L (5-34); Albumin 3.3 g/dL (3.5-5.0); Alkaline Phosphatase 234 U/L (40-110); Anion Gap 11 mmol/L (10-20); BUN (Urea Nitrogen) 86 mg/dL (8.9-20.6); Bilirubin, Total 1.2 mg/dL (0.2-1.2); Calc. Creatinine Clearance 41 mL/min (70-130); Calcium 8.5 mg/dL (7.8-10.44); Carbon Dioxide 20 mmol/L (22-29); Chloride 93 mmol/L (98-107); Globulin 2.8 g/dL (2.4-3.5); Glucose 162 mg/dL (70-105); Magnesium 2.3 mg/dL (1.6-2.6); Potassium 4.5 mmol/L (3.5-5.1); Protein, Total 6.1 g/dL (6.0-8.3)
[2021-02-02 04:17] LABS: Sodium 119 mmol/L (136-145)
[2021-02-02 07:32] LABS: Hemoglobin 7.8 g/dL (14.0-18.0)
[2021-02-02 07:44] LABS: Sodium 120 mmol/L (136-145)
[2021-02-02] MEDS: Albumin 25% 25 GM/100 ML BOT IVPB SCH ×4 (07:45→22:35)
[2021-02-02 07:59] LABS: #Eosinphils 0.1 thou/uL (0.0-0.7); #Lymphocytes 0.9 thou/uL (1.20-3.40); #Monocytes 0.6 thou/uL (0.11-0.59); #Neutrophils 3.7 thou/uL (1.40-6.50); %Basophils 0.2 % (0.0-1.0); %Eosinophils 1.6 % (0.0-10.0); %Lymphocytes 17.4 % (21.0-51.0); %Monocytes 10.6 % (0.0-10.0); %Neutrophils 70.3 % (42.0-75.0); Hemoglobin 7.8 g/dL (14.0-18.0); Hypochromia SLIGHT = 6-15 cells (100X) (0-5/hpf); MDiff Complete? YES; Mean Corpuscular HGB CONC 34.7 g/dL (32.0-36.0); Mean Corpuscular Hemoglobin 30.8 pg (27.0-31.0); Mean Corpuscular Volume 88.6 fL (78.0-98.0); Mean Platelet Volume 8.7 fL (7.4-10.4); Platelet Count 103 thou/uL (130-400); Platelet Morphology Comment Appears Decreased; Polychromasia SLIGHT = 2-3 cells (100X) (0-2/hpf); RBC Distribution Width 16.9 % (11.5-14.5); Red Blood Cell (RBC) Count 2.52 mill/uL (4.70-6.10); White Blood Cell (WBC) Count 5.3 thou/uL (4.8-10.8)
[2021-02-02] MEDS: Ondansetron PF 4 MG/2 ML Vial IVP PRN ×3 (08:45→19:57)
[2021-02-02] MEDS: Acetaminophen 500 MG TAB PO PRN ×2 (14:30→19:55)
[2021-02-02 15:20] LABS: Hemoglobin 8.1 g/dL (14.0-18.0)
[2021-02-02 15:36] LABS: Sodium 123 mmol/L (136-145)
[2021-02-02] MEDS: traMADol HCl 50 MG TAB PO PRN ×2 (15:56→22:35)
[2021-02-02] MEDS: cefTRIAXone\\ROCEPHIN 1 GM in Sodium Chloride 0.9% 100 ML IVPB SCH (19:57)
[2021-02-02 23:20] LABS: Hemoglobin 7.4 g/dL (14.0-18.0)
[2021-02-02 23:33] LABS: Sodium 124 mmol/L (136-145)
[2021-02-03] MEDS: Pantoprazole 80 MG in Sodium Chloride 0.9% 100 ML IVPB SCH ×3 (01:45→23:05)
[2021-02-03] MEDS: Acetaminophen 500 MG TAB PO PRN (01:45)
[2021-02-03] MEDS: Ondansetron PF 4 MG/2 ML Vial IVP PRN ×4 (01:50→20:29)
[2021-02-03] MEDS: traMADol HCl 50 MG TAB PO PRN ×4 (04:07→20:29)
[2021-02-03 04:18] LABS: ALT (SGPT) 45 U/L (8-55); AST (SGOT) 75 U/L (5-34); Albumin 3.7 g/dL (3.5-5.0); Alkaline Phosphatase 192 U/L (40-110); Anion Gap 11 mmol/L (10-20); BUN (Urea Nitrogen) 86 mg/dL (8.9-20.6); Calc. Creatinine Clearance 44 mL/min (70-130); Calcium 8.8 mg/dL (7.8-10.44); Carbon Dioxide 19 mmol/L (22-29); Chloride 97 mmol/L (98-107); Globulin 2.5 g/dL (2.4-3.5); Glucose 126 mg/dL (70-105); Magnesium 2.4 mg/dL (1.6-2.6); Potassium 4.1 mmol/L (3.5-5.1); Protein, Total 6.2 g/dL (6.0-8.3); Sodium 123 mmol/L (136-145)
[2021-02-03 04:35] LABS: #Eosinphils 0.1 thou/uL (0.0-0.7); #Lymphocytes 0.7 thou/uL (1.20-3.40); #Monocytes 0.5 thou/uL (0.11-0.59); #Neutrophils 2.2 thou/uL (1.40-6.50); %Basophils 0.8 % (0.0-1.0); %Eosinophils 3.1 % (0.0-10.0); %Lymphocytes 19.6 % (21.0-51.0); %Monocytes 13.1 % (0.0-10.0); %Neutrophils 63.5 % (42.0-75.0); Hemoglobin 7.1 g/dL (14.0-18.0); Mean Corpuscular HGB CONC 35.1 g/dL (32.0-36.0); Mean Corpuscular Hemoglobin 31.7 pg (27.0-31.0); Mean Corpuscular Volume 90.2 fL (78.0-98.0); Mean Platelet Volume 7.5 fL (7.4-10.4); Platelet Count 72 thou/uL (130-400); Platelet Morphology Comment Appears Decreased; Red Blood Cell (RBC) Count 2.25 mill/uL (4.70-6.10); White Blood Cell (WBC) Count 3.5 thou/uL (4.8-10.8)
[2021-02-03] MEDS: Midodrine HCl 5 MG TAB PO SCH ×3 (06:24→23:03)
[2021-02-03 07:25] LABS: Hemoglobin 7.9 g/dL (14.0-18.0)
[2021-02-03] MEDS: Albumin 25% 25 GM/100 ML BOT IVPB SCH ×3 (11:30→21:17)
[2021-02-03] MEDS ORDERED: Promethazine HCl 12.5 MG in Sodium Chloride 0.9% 50 ML IVPB PRN (13:43)
[2021-02-03] MEDS: cefTRIAXone\\ROCEPHIN 1 GM in Sodium Chloride 0.9% 100 ML IVPB SCH (19:43)
[2021-02-03] MEDS: Rifaximin 550 MG TAB PO SCH (21:17)
[2021-02-04] MEDS: Octreotide Acetate 1,250 MCG in Sodium Chloride 0.9% 250 ML 250 ML IVPB SCH (03:02)
[2021-02-04] MEDS: Ondansetron PF 4 MG/2 ML Vial IVP PRN ×4 (03:03→23:49)
[2021-02-04] MEDS: traMADol HCl 50 MG TAB PO PRN ×4 (03:03→23:49)
[2021-02-04] MEDS: Albumin 25% 25 GM/100 ML BOT IVPB SCH ×4 (03:08→22:32)
[2021-02-04 05:49] LABS: ALT (SGPT) 39 U/L (8-55); AST (SGOT) 61 U/L (5-34); Albumin 4.5 g/dL (3.5-5.0); Alkaline Phosphatase 180 U/L (40-110); Anion Gap 15 mmol/L (10-20); BUN (Urea Nitrogen) 67 mg/dL (8.9-20.6); Bilirubin, Total 0.9 mg/dL (0.2-1.2); Calc. Creatinine Clearance 50 mL/min (70-130); Calcium 9.2 mg/dL (7.8-10.44); Carbon Dioxide 15 mmol/L (22-29); Chloride 100 mmol/L (98-107); Globulin 2.4 g/dL (2.4-3.5); Glucose 124 mg/dL (70-105); Magnesium 2.4 mg/dL (1.6-2.6); Potassium 4.4 mmol/L (3.5-5.1); Protein, Total 6.9 g/dL (6.0-8.3); Sodium 126 mmol/L (136-145)
[2021-02-04] MEDS: Midodrine HCl 5 MG TAB PO SCH ×3 (06:37→21:32)
[2021-02-04] MEDS ORDERED: Lorazepam 2 MG/ML VIAL SLOW IVP PRN (07:30)
[2021-02-04 08:13] LABS: #Eosinphils 0.1 thou/uL (0.0-0.7); #Lymphocytes 0.8 thou/uL (1.20-3.40); #Monocytes 0.5 thou/uL (0.11-0.59); #Neutrophils 2.2 thou/uL (1.40-6.50); %Basophils 0.4 % (0.0-1.0); %Eosinophils 3.8 % (0.0-10.0); %Lymphocytes 22.4 % (21.0-51.0); %Monocytes 13.8 % (0.0-10.0); %Neutrophils 59.7 % (42.0-75.0); Hemoglobin 7.5 g/dL (14.0-18.0); Mean Corpuscular HGB CONC 34.6 g/dL (32.0-36.0); Mean Corpuscular Hemoglobin 31.5 pg (27.0-31.0); Mean Corpuscular Volume 90.9 fL (78.0-98.0); Mean Platelet Volume 8.4 fL (7.4-10.4); Platelet Count 90 thou/uL (130-400); RBC Distribution Width 17.5 % (11.5-14.5); White Blood Cell (WBC) Count 3.7 thou/uL (4.8-10.8)
[2021-02-04] MEDS: Rifaximin 550 MG TAB PO SCH ×2 (10:04→21:32)
[2021-02-04] MEDS: Pantoprazole 80 MG in Sodium Chloride 0.9% 100 ML IVPB SCH (11:57)
[2021-02-04] MEDS ORDERED: cefTRIAXone\\ROCEPHIN 1 GM in Sodium Chloride 0.9% 100 ML IVPB SCH (21:00)
[2021-02-04] MEDS: Sodium Bicarbonate Tab 325 MG TAB PO SCH (22:31)
[2021-02-04] MEDS: cefTRIAXone\\ROCEPHIN 1 GM in Sodium Chloride 0.9% 100 ML IVPB SCH (22:59)
[2021-02-05] MEDS: Albumin 25% 25 GM/100 ML BOT IVPB SCH ×3 (04:36→17:30)
[2021-02-05] MEDS: traMADol HCl 50 MG TAB PO PRN ×3 (06:13→21:27)
[2021-02-05] MEDS: Midodrine HCl 5 MG TAB PO SCH ×3 (06:14→21:27)
[2021-02-05] MEDS: Ondansetron PF 4 MG/2 ML Vial IVP PRN ×3 (06:14→21:31)
[2021-02-05] MEDS: Pantoprazole 80 MG in Sodium Chloride 0.9% 100 ML IVPB SCH (06:14)
[2021-02-05 07:44] LABS: #Eosinphils 0.1 thou/uL (0.0-0.7); #Lymphocytes 0.6 thou/uL (1.20-3.40); #Monocytes 0.3 thou/uL (0.11-0.59); #Neutrophils 1.2 thou/uL (1.40-6.50); %Basophils 1.3 % (0.0-1.0); %Eosinophils 3.9 % (0.0-10.0); %Lymphocytes 25.4 % (21.0-51.0); %Monocytes 13.2 % (0.0-10.0); %Neutrophils 56.1 % (42.0-75.0); Hemoglobin 7.2 g/dL (14.0-18.0); Mean Corpuscular HGB CONC 33.5 g/dL (32.0-36.0); Mean Corpuscular Hemoglobin 30.7 pg (27.0-31.0); Mean Corpuscular Volume 91.7 fL (78.0-98.0); Mean Platelet Volume 8.6 fL (7.4-10.4); Platelet Count 74 thou/uL (130-400); RBC Distribution Width 17.5 % (11.5-14.5); Red Blood Cell (RBC) Count 2.33 mill/uL (4.70-6.10); White Blood Cell (WBC) Count 2.2 thou/uL (4.8-10.8)
[2021-02-05 08:00] LABS: ALT (SGPT) 32 U/L (8-55); AST (SGOT) 51 U/L (5-34); Albumin 4.7 g/dL (3.5-5.0); Alkaline Phosphatase 168 U/L (40-110); Anion Gap 14 mmol/L (10-20); BUN (Urea Nitrogen) 53 mg/dL (8.9-20.6); Bilirubin, Total 1.1 mg/dL (0.2-1.2); Calc. Creatinine Clearance 63 mL/min (70-130); Calcium 9.4 mg/dL (7.8-10.44); Carbon Dioxide 17 mmol/L (22-29); Chloride 101 mmol/L (98-107); Globulin 2.3 g/dL (2.4-3.5); Glucose 125 mg/dL (70-105); Potassium 3.9 mmol/L (3.5-5.1); Sodium 128 mmol/L (136-145)
[2021-02-05] MEDS: Rifaximin 550 MG TAB PO SCH ×2 (09:03→21:27)
[2021-02-05] MEDS: Sodium Bicarbonate Tab 325 MG TAB PO SCH ×3 (09:14→21:28)
[2021-02-06] MEDS: Octreotide Acetate 1,250 MCG in Sodium Chloride 0.9% 250 ML 250 ML IVPB SCH (00:48)
[2021-02-06] MEDS: traMADol HCl 50 MG TAB PO PRN ×4 (03:32→21:16)
[2021-02-06] MEDS: Ondansetron PF 4 MG/2 ML Vial IVP PRN ×3 (03:33→15:02)
[2021-02-06 06:00] LABS: #Eosinphils 0.1 thou/uL (0.0-0.7); #Lymphocytes 0.5 thou/uL (1.20-3.40); #Monocytes 0.2 thou/uL (0.11-0.59); #Neutrophils 1.5 thou/uL (1.40-6.50); %Basophils 0.8 % (0.0-1.0); %Eosinophils 4.1 % (0.0-10.0); %Lymphocytes 23.5 % (21.0-51.0); %Monocytes 8.2 % (0.0-10.0); %Neutrophils 63.5 % (42.0-75.0); Hemoglobin 7.3 g/dL (14.0-18.0); Mean Corpuscular HGB CONC 34.1 g/dL (32.0-36.0); Mean Corpuscular Hemoglobin 30.9 pg (27.0-31.0); Mean Corpuscular Volume 90.5 fL (78.0-98.0); Mean Platelet Volume 8.3 fL (7.4-10.4); Platelet Count 70 thou/uL (130-400); RBC Distribution Width 17.5 % (11.5-14.5); Red Blood Cell (RBC) Count 2.36 mill/uL (4.70-6.10); White Blood Cell (WBC) Count 2.3 thou/uL (4.8-10.8)
[2021-02-06 06:09] LABS: ALT (SGPT) 28 U/L (8-55); AST (SGOT) 50 U/L (5-34); Albumin 4.4 g/dL (3.5-5.0); Alkaline Phosphatase 185 U/L (40-110); Anion Gap 13 mmol/L (10-20); BUN (Urea Nitrogen) 47 mg/dL (8.9-20.6); Calc. Creatinine Clearance 74 mL/min (70-130); Calcium 9.3 mg/dL (7.8-10.44); Carbon Dioxide 19 mmol/L (22-29); Chloride 103 mmol/L (98-107); Globulin 2.3 g/dL (2.4-3.5); Glucose 123 mg/dL (70-105); Protein, Total 6.7 g/dL (6.0-8.3); Sodium 131 mmol/L (136-145)
[2021-02-06] MEDS: Midodrine HCl 5 MG TAB PO SCH ×3 (06:14→22:29)
[2021-02-06] MEDS: Sodium Bicarbonate Tab 325 MG TAB PO SCH ×3 (08:52→21:17)
[2021-02-06] MEDS: Rifaximin 550 MG TAB PO SCH ×2 (08:52→21:18)
[2021-02-06] MEDS ORDERED: Octreotide Acetate 1,250 MCG in Sodium Chloride 0.9% 250 ML 250 ML IVPB SCH (12:15)
[2021-02-06] MEDS ORDERED: Sodium Bicarbonate 2.5 MEQ/5 ML VIAL ONE (14:03)
[2021-02-06] MEDS ORDERED: Lidocaine 1% PF 5 ML VIAL ONE (14:03)
[2021-02-06] MEDS: Albumin 25% 25 GM/100 ML BOT IVPB SCH ×2 (16:12→22:29)
[2021-02-07] MEDS: traMADol HCl 50 MG TAB PO PRN ×2 (04:34→15:10)
[2021-02-07] MEDS: Ondansetron PF 4 MG/2 ML Vial IVP PRN ×2 (04:40→15:10)
[2021-02-07 04:46] LABS: #Eosinphils 0.1 thou/uL (0.0-0.7); #Lymphocytes 0.6 thou/uL (1.20-3.40); #Monocytes 0.2 thou/uL (0.11-0.59); #Neutrophils 1.4 thou/uL (1.40-6.50); %Basophils 0.4 % (0.0-1.0); %Eosinophils 4.6 % (0.0-10.0); %Lymphocytes 26.1 % (21.0-51.0); %Monocytes 10.4 % (0.0-10.0); %Neutrophils 58.5 % (42.0-75.0); Hemoglobin 7.2 g/dL (14.0-18.0); Mean Corpuscular HGB CONC 33.2 g/dL (32.0-36.0); Mean Corpuscular Hemoglobin 30.5 pg (27.0-31.0); Mean Corpuscular Volume 91.9 fL (78.0-98.0); Mean Platelet Volume 7.8 fL (7.4-10.4); Platelet Count 68 thou/uL (130-400); RBC Distribution Width 17.8 % (11.5-14.5); Red Blood Cell (RBC) Count 2.36 mill/uL (4.70-6.10); White Blood Cell (WBC) Count 2.3 thou/uL (4.8-10.8)
[2021-02-07 04:56] LABS: ALT (SGPT) 27 U/L (8-55); AST (SGOT) 46 U/L (5-34); Albumin 4.6 g/dL (3.5-5.0); Alkaline Phosphatase 186 U/L (40-110); Anion Gap 14 mmol/L (10-20); BUN (Urea Nitrogen) 37 mg/dL (8.9-20.6); Bilirubin, Total 1.4 mg/dL (0.2-1.2); Calc. Creatinine Clearance 80 mL/min (70-130); Calcium 9.6 mg/dL (7.8-10.44); Carbon Dioxide 19 mmol/L (22-29); Chloride 102 mmol/L (98-107); Globulin 2.3 g/dL (2.4-3.5); Glucose 126 mg/dL (70-105); Potassium 4.1 mmol/L (3.5-5.1); Protein, Total 6.9 g/dL (6.0-8.3); Sodium 131 mmol/L (136-145)
[2021-02-07] MEDS: Midodrine HCl 5 MG TAB PO SCH ×2 (05:57→15:19)
[2021-02-07 08:22] VITALS: BP 107/58; TEMP 97.9
[2021-02-07] MEDS: Rifaximin 550 MG TAB PO SCH (08:56)
== END 2021-02-07 16:05 | disposition home or self-care (01) | DRG 432 ==
LOC: ERS 16:19 → IMCU/EMU 20:39 → ONC 02-02 12:06
PROVIDERS: ADMIT Internal Medicine; ATTEND Family Medicine
PROC: 30233N1 Transfusion of Nonautologous Red Blood Cells into Peripheral Vein, Percutaneous Approach (ICD-10-PCS; 2021-02-05)
PROC: 0W9G3ZZ Drainage of Peritoneal Cavity, Percutaneous Approach (ICD-10-PCS; principal; 2021-02-06)
DX: K70.31 Alcoholic cirrhosis of liver with ascites (principal); Z20.822 Contact with and (suspected) exposure to COVID-19; K76.7 Hepatorenal syndrome; C22.0 Liver cell carcinoma; N17.9 Acute kidney failure, unspecified; E87.2 Acidosis; N18.4 Chronic kidney disease, stage 4 (severe); D62 Acute posthemorrhagic anemia; E22.2 Syndrome of inappropriate secretion of antidiuretic hormone; K76.6 Portal hypertension; K92.0 Hematemesis; N18.30 Chronic kidney disease, stage 3 unspecified; E87.5 Hyperkalemia; D63.1 Anemia in chronic kidney disease; J45.909 Unspecified asthma, uncomplicated; K21.9 Gastro-esophageal reflux disease without esophagitis; K72.90 Hepatic failure, unspecified without coma; K31.89 Other diseases of stomach and duodenum; Z79.899 Other long term (current) drug therapy; Z87.891 Personal history of nicotine dependence; Z86.19 Personal history of other infectious and parasitic diseases
CPT/HCPCS: 36415; 36430; 49083; 74183; 80053; 82105; 83605; 83735; 85014; 85018; 85025; 85610; 85730; 86850; 86900; 86901; 87040; 96365; 96366; 96367; 96375; C9113; J0696; J2060; J2354; J2405; J2550; J3490; J7050; P9016; P9047; U0002

== ENCOUNTER 2021-03-07 13:16 | Inpatient (IN) | payer SELFPAY, OTHER ==
[2021-03-07 13:51] LABS: #Basophils 0.1 thou/uL (0.0-0.2); #Eosinphils 0.2 thou/uL (0.0-0.7); #Lymphocytes 1.1 thou/uL (1.20-3.40); #Monocytes 0.8 thou/uL (0.11-0.59); #Neutrophils 8.5 thou/uL (1.40-6.50); %Basophils 0.8 % (0.0-1.0); %Eosinophils 1.8 % (0.0-10.0); %Lymphocytes 10.4 % (21.0-51.0); %Monocytes 7.1 % (0.0-10.0); %Neutrophils 79.9 % (42.0-75.0); Hemoglobin 10.1 g/dL (14.0-18.0); Mean Corpuscular HGB CONC 33.6 g/dL (32.0-36.0); Mean Corpuscular Hemoglobin 30.4 pg (27.0-31.0); Mean Corpuscular Volume 90.5 fL (78.0-98.0); Mean Platelet Volume 8.2 fL (7.4-10.4); Platelet Count 180 thou/uL (130-400); RBC Distribution Width 17.7 % (11.5-14.5); Red Blood Cell (RBC) Count 3.34 mill/uL (4.70-6.10); White Blood Cell (WBC) Count 10.7 thou/uL (4.8-10.8)
[2021-03-07 14:11] LABS: ALT (SGPT) 33 U/L (8-55); AST (SGOT) 66 U/L (5-34); Alkaline Phosphatase 306 U/L (40-110); Anion Gap 11 mmol/L (10-20); BUN (Urea Nitrogen) 69 mg/dL (8.9-20.6); Bilirubin, Total 1.1 mg/dL (0.2-1.2); Calc. Creatinine Clearance 0 mL/min (70-130); Calcium 9.6 mg/dL (7.8-10.44); Carbon Dioxide 20 mmol/L (22-29); Chloride 95 mmol/L (98-107); Globulin 3.6 g/dL (2.4-3.5); Glucose 126 mg/dL (70-105); Potassium 5.3 mmol/L (3.5-5.1); Protein, Total 7.6 g/dL (6.0-8.3); Sodium 121 mmol/L (136-145)
[2021-03-07] MEDS ORDERED: Pantoprazole 40 MG VIAL ONE (16:55)
[2021-03-07] MEDS ORDERED: Ondansetron PF 4 MG/2 ML Vial ONE (17:07)
[2021-03-07 17:11] LABS: INR-International Normal Ratio 1.2; Prothrombin Time 14.9 sec (12.0-14.7)
[2021-03-07 17:12] LABS: PTT 37.1 sec (22.9-36.1)
[2021-03-07 17:51] LABS: Bilirubin Negative (Negative); Blood, Urine Negative (Negative); Clarity Clear (Clear); Glucose, Urine (Dipstick) Normal (Negative); Ketone, Urine Trace mg/dL (Negative); Leukocyte Negative Leu/uL (Negative); Nitrite Negative (Negative); Protein, Urine (Dipstick) Negative (Neg-Trace); Specific Gravity, Urine 1.018 (1.002-1.036); Urobilinogen Normal mg/dL (Less than 2)
[2021-03-07 20:45] LABS: Anion Gap 16 mmol/L (10-20); BUN (Urea Nitrogen) 72 mg/dL (8.9-20.6); Calc. Creatinine Clearance 49 mL/min (70-130); Calcium 9.1 mg/dL (7.8-10.44); Carbon Dioxide 15 mmol/L (22-29); Chloride 97 mmol/L (98-107); Glucose 118 mg/dL (70-105); Potassium 5.9 mmol/L (3.5-5.1); Sodium 122 mmol/L (136-145)
[2021-03-07] MEDS ORDERED: Pantoprazole 40 MG VIAL IVP SCH (21:00)
[2021-03-07] MEDS: hydrOXYzine 25 MG TAB PO SCH (21:12)
[2021-03-07] MEDS: traMADol HCl 50 MG TAB PO PRN (21:12)
[2021-03-07] MEDS: Pantoprazole 80 MG in Sodium Chloride 0.9% 100 ML IVPB SCH ×2 (21:13→22:41)
[2021-03-07] MEDS: Octreotide Acetate 1,250 MCG in Sodium Chloride 0.9% 250 ML 250 ML IVPB SCH (21:13)
[2021-03-07] MEDS: Rifaximin 550 MG TAB PO SCH (21:13)
[2021-03-07] MEDS: Ondansetron PF 4 MG/2 ML Vial IVP PRN (21:53)
[2021-03-08] MEDS: Metoclopramide HCl 10 MG/2 ML VIAL IVP PRN ×2 (00:44→20:37)
[2021-03-08 06:27] LABS: #Basophils 0.1 thou/uL (0.0-0.2); #Eosinphils 0.1 thou/uL (0.0-0.7); #Lymphocytes 1.3 thou/uL (1.20-3.40); #Monocytes 0.9 thou/uL (0.11-0.59); #Neutrophils 11.1 thou/uL (1.40-6.50); %Basophils 0.8 % (0.0-1.0); %Eosinophils 0.5 % (0.0-10.0); %Lymphocytes 9.5 % (21.0-51.0); %Neutrophils 82.3 % (42.0-75.0); Mean Corpuscular HGB CONC 33.9 g/dL (32.0-36.0); Mean Corpuscular Hemoglobin 31.3 pg (27.0-31.0); Mean Corpuscular Volume 92.1 fL (78.0-98.0); Mean Platelet Volume 8.3 fL (7.4-10.4); Platelet Count 162 thou/uL (130-400); RBC Distribution Width 17.6 % (11.5-14.5); Red Blood Cell (RBC) Count 2.56 mill/uL (4.70-6.10); White Blood Cell (WBC) Count 13.5 thou/uL (4.8-10.8)
[2021-03-08 06:48] LABS: ALT (SGPT) 28 U/L (8-55); AST (SGOT) 53 U/L (5-34); Albumin 3.4 g/dL (3.5-5.0); Alkaline Phosphatase 236 U/L (40-110); Anion Gap 18 mmol/L (10-20); BUN (Urea Nitrogen) 81 mg/dL (8.9-20.6); Bilirubin, Total 1.4 mg/dL (0.2-1.2); Calc. Creatinine Clearance 41 mL/min (70-130); Calcium 8.9 mg/dL (7.8-10.44); Carbon Dioxide 14 mmol/L (22-29); Chloride 95 mmol/L (98-107); Globulin 2.7 g/dL (2.4-3.5); Glucose 121 mg/dL (70-105); Protein, Total 6.1 g/dL (6.0-8.3); Sodium 120 mmol/L (136-145)
[2021-03-08 06:54] LABS: Potassium 6.9 mmol/L (3.5-5.1)
[2021-03-08] MEDS ORDERED: Sodium Chloride 0.9% 500 ML IV SCH (08:15)
[2021-03-08 08:27] LABS: SARS-CoV-2 NAA Rapid Test Not Detected (NotDetected)
[2021-03-08] MEDS ORDERED: Albumin 25% 25 GM/100 ML BOT IVPB SCH (09:00)
[2021-03-08] MEDS ORDERED: Heparin 10,000 UNITS/ 10 ML VIAL ONE (09:22)
[2021-03-08] MEDS: hydrOXYzine 25 MG TAB PO SCH ×4 (09:31→21:07)
[2021-03-08] MEDS: Rifaximin 550 MG TAB PO SCH ×2 (09:31→21:08)
[2021-03-08 10:01] LABS: HBSAg Index 0.27 S/CO (0-0.99); Hep B Surf Ag Non-Reactive S/CO (NonReactive)
[2021-03-08 10:02] LABS: HBSAB Concentration Less than 8.00 mIU/mL; HBSAg Index 0.25 S/CO (0-0.99); Hep B Core Total Ab Non-Reactive (NonReactive); Hep B Core Total Index 0.07 S/CO (0-0.79); Hep B Surf AB Non-Reactive (NonReactive); Hep B Surf Ag Non-Reactive S/CO (NonReactive)
[2021-03-08 10:04] LABS: Hep C IgG Ab Reflex HepC Qnt (NonReactive); Hep C Index 14.47 S/CO (0-0.79)
[2021-03-08] MEDS ORDERED: Pantoprazole 80 MG, Admixture Fee 1 EACH in Sodium Chloride 0.9% 100 ML IVPB SCH (10:45)
[2021-03-08 13:28] LABS: Hemoglobin A1c 5.6 % (4.0-6.0)
[2021-03-08 13:33] LABS: Anion Gap 15 mmol/L (10-20); BUN (Urea Nitrogen) 40 mg/dL (8.9-20.6); Calc. Creatinine Clearance 82 mL/min (70-130); Calcium 8.1 mg/dL (7.8-10.44); Carbon Dioxide 23 mmol/L (22-29); Chloride 98 mmol/L (98-107); Glucose 94 mg/dL (70-105); Potassium 4.2 mmol/L (3.5-5.1); Sodium 132 mmol/L (136-145)
[2021-03-08] MEDS ORDERED: PHENYLEPHRINE-NS 100 MCG/ML 10 ML SYRINGE ONE (14:30)
[2021-03-08] MEDS ORDERED: Succinylcholine 200 MG/10 ml SYRINGE FS ONE (14:30)
[2021-03-08] MEDS ORDERED: PROPOFOL 200 MG/20 ML VIAL ONE ×2 (14:30)
[2021-03-08] MEDS ORDERED: Lidocaine 1% PF 5 ML VIAL ONE (14:30)
[2021-03-08] MEDS ORDERED: Ondansetron HCl/PF 4 MG/2 ML Vial IVP PRN (15:17)
[2021-03-08] MEDS ORDERED: Promethazine HCl 25 MG/ML VIAL IM PRN (15:17)
[2021-03-08] MEDS ORDERED: Promethazine HCl 25 MG/ML VIAL IVPB PRN (15:17)
[2021-03-08] MEDS ORDERED: Fentanyl 100 MCG/2 ML VIAL ONE (15:43)
[2021-03-08] MEDS: cefTRIAXone\\ROCEPHIN 1 GM in Sodium Chloride 0.9% 100 ML IVPB SCH (16:44)
[2021-03-08 16:49] LABS: Hemoglobin 7.2 g/dL (14.0-18.0); Mean Corpuscular HGB CONC 34.8 g/dL (32.0-36.0); Mean Corpuscular Hemoglobin 31.8 pg (27.0-31.0); Mean Corpuscular Volume 91.3 fL (78.0-98.0); Mean Platelet Volume 8.5 fL (7.4-10.4); Platelet Count 169 thou/uL (130-400); RBC Distribution Width 17.7 % (11.5-14.5); Red Blood Cell (RBC) Count 2.26 mill/uL (4.70-6.10); White Blood Cell (WBC) Count 17.4 thou/uL (4.8-10.8)
[2021-03-08] MEDS: Ondansetron PF 4 MG/2 ML Vial IVP PRN ×2 (18:14→23:09)
[2021-03-08] MEDS: traMADol HCl 50 MG TAB PO PRN (21:07)
[2021-03-08] MEDS: Pantoprazole 40 MG VIAL IVP SCH (21:08)
[2021-03-09 05:02] LABS: INR-International Normal Ratio 1.4; Prothrombin Time 17.2 sec (12.0-14.7)
[2021-03-09 05:13] LABS: #Basophils 0.1 thou/uL (0.0-0.2); #Eosinphils 0.4 thou/uL (0.0-0.7); #Lymphocytes 1.4 thou/uL (1.20-3.40); #Monocytes 0.8 thou/uL (0.11-0.59); #Neutrophils 8.2 thou/uL (1.40-6.50); %Basophils 0.9 % (0.0-1.0); %Eosinophils 3.9 % (0.0-10.0); %Lymphocytes 12.8 % (21.0-51.0); %Monocytes 7.7 % (0.0-10.0); %Neutrophils 74.7 % (42.0-75.0); Hemoglobin 8.1 g/dL (14.0-18.0); Mean Corpuscular HGB CONC 34.2 g/dL (32.0-36.0); Mean Corpuscular Hemoglobin 31.3 pg (27.0-31.0); Mean Corpuscular Volume 91.3 fL (78.0-98.0); Mean Platelet Volume 8.5 fL (7.4-10.4); Platelet Count 109 thou/uL (130-400); Platelet Morphology Comment Appears Decreased; RBC Distribution Width 16.5 % (11.5-14.5); Red Blood Cell (RBC) Count 2.58 mill/uL (4.70-6.10)
[2021-03-09 05:18] LABS: ALT (SGPT) 45 U/L (8-55); AST (SGOT) 92 U/L (5-34); Albumin 2.9 g/dL (3.5-5.0); Alkaline Phosphatase 192 U/L (40-110); Anion Gap 13 mmol/L (10-20); BUN (Urea Nitrogen) 63 mg/dL (8.9-20.6); Bilirubin, Total 3.6 mg/dL (0.2-1.2); Calc. Creatinine Clearance 41 mL/min (70-130); Calcium 8.7 mg/dL (7.8-10.44); Carbon Dioxide 22 mmol/L (22-29); Chloride 93 mmol/L (98-107); Globulin 2.4 g/dL (2.4-3.5); Glucose 151 mg/dL (70-105); Protein, Total 5.3 g/dL (6.0-8.3); Sodium 123 mmol/L (136-145)
[2021-03-09] MEDS: Rifaximin 550 MG TAB PO SCH ×2 (08:39→21:04)
[2021-03-09] MEDS: hydrOXYzine 25 MG TAB PO SCH ×4 (08:40→21:05)
[2021-03-09] MEDS: Pantoprazole 40 MG VIAL IVP SCH (08:41)
[2021-03-09] MEDS ORDERED: Heparin 10,000 UNITS/ 10 ML VIAL ONE (09:23)
[2021-03-09] MEDS: cefTRIAXone\\ROCEPHIN 1 GM in Sodium Chloride 0.9% 100 ML IVPB SCH (16:20)
[2021-03-09] MEDS: Octreotide Acetate 1,250 MCG in Sodium Chloride 0.9% 250 ML 250 ML IVPB SCH (16:23)
[2021-03-09] MEDS: Albumin 25% 25 GM/100 ML BOT IVPB SCH ×2 (17:16→21:06)
[2021-03-09] MEDS: traMADol HCl 50 MG TAB PO PRN (19:38)
[2021-03-10] MEDS: traMADol HCl 50 MG TAB PO PRN ×3 (01:11→20:26)
[2021-03-10 04:47] LABS: #Eosinphils 0.3 thou/uL (0.0-0.7); #Lymphocytes 1.1 thou/uL (1.20-3.40); #Monocytes 0.5 thou/uL (0.11-0.59); #Neutrophils 3.7 thou/uL (1.40-6.50); %Basophils 0.6 % (0.0-1.0); %Eosinophils 5.9 % (0.0-10.0); %Lymphocytes 19.9 % (21.0-51.0); %Monocytes 9.4 % (0.0-10.0); %Neutrophils 64.2 % (42.0-75.0); Hemoglobin 6.8 g/dL (14.0-18.0); Mean Corpuscular HGB CONC 34.4 g/dL (32.0-36.0); Mean Corpuscular Volume 92.9 fL (78.0-98.0); Mean Platelet Volume 8.2 fL (7.4-10.4); Platelet Count 75 thou/uL (130-400); RBC Distribution Width 16.8 % (11.5-14.5); Red Blood Cell (RBC) Count 2.12 mill/uL (4.70-6.10); White Blood Cell (WBC) Count 5.7 thou/uL (4.8-10.8)
[2021-03-10 04:58] LABS: ALT (SGPT) 48 U/L (8-55); AST (SGOT) 104 U/L (5-34); Albumin 3.1 g/dL (3.5-5.0); Alkaline Phosphatase 176 U/L (40-110); Anion Gap 11 mmol/L (10-20); BUN (Urea Nitrogen) 50 mg/dL (8.9-20.6); Bilirubin, Total 1.6 mg/dL (0.2-1.2); Calc. Creatinine Clearance 39 mL/min (70-130); Calcium 8.3 mg/dL (7.8-10.44); Carbon Dioxide 26 mmol/L (22-29); Chloride 93 mmol/L (98-107); Globulin 2.1 g/dL (2.4-3.5); Glucose 120 mg/dL (70-105); Potassium 4.1 mmol/L (3.5-5.1); Protein, Total 5.2 g/dL (6.0-8.3); Sodium 126 mmol/L (136-145)
[2021-03-10] MEDS: Rifaximin 550 MG TAB PO SCH ×2 (09:05→20:23)
[2021-03-10] MEDS: hydrOXYzine 25 MG TAB PO SCH ×4 (09:05→20:23)
[2021-03-10] MEDS: Albumin 25% 25 GM/100 ML BOT IVPB SCH ×2 (09:06→17:47)
[2021-03-10] MEDS: Pantoprazole 40 MG VIAL IVP SCH (09:06)
[2021-03-10 10:01] LABS: Hemoglobin 7.6 g/dL (14.0-18.0); Platelet Count 84 thou/uL (130-400)
[2021-03-10] MEDS ORDERED: Tuberculin PPD 0.1 ML VIAL I-DERMAL SCH (11:00)
[2021-03-10] MEDS: cefTRIAXone\\ROCEPHIN 1 GM in Sodium Chloride 0.9% 100 ML IVPB SCH (14:24)
[2021-03-10 18:37] LABS: Hep C PCR-Quant HCV Not Detected IU/mL (.)
[2021-03-11 04:53] LABS: #Basophils 0.1 thou/uL (0.0-0.2); #Eosinphils 0.3 thou/uL (0.0-0.7); #Lymphocytes 0.9 thou/uL (1.20-3.40); #Monocytes 0.5 thou/uL (0.11-0.59); #Neutrophils 3.5 thou/uL (1.40-6.50); %Eosinophils 6.1 % (0.0-10.0); %Lymphocytes 17.3 % (21.0-51.0); %Monocytes 8.6 % (0.0-10.0); Hemoglobin 7.1 g/dL (14.0-18.0); Mean Corpuscular HGB CONC 34.4 g/dL (32.0-36.0); Mean Corpuscular Volume 93.2 fL (78.0-98.0); Mean Platelet Volume 8.1 fL (7.4-10.4); Platelet Count 87 thou/uL (130-400); RBC Distribution Width 17.1 % (11.5-14.5); Red Blood Cell (RBC) Count 2.21 mill/uL (4.70-6.10); White Blood Cell (WBC) Count 5.2 thou/uL (4.8-10.8)
[2021-03-11 05:11] LABS: ALT (SGPT) 48 U/L (8-55); AST (SGOT) 93 U/L (5-34); Albumin 3.4 g/dL (3.5-5.0); Alkaline Phosphatase 186 U/L (40-110); Anion Gap 11 mmol/L (10-20); BUN (Urea Nitrogen) 57 mg/dL (8.9-20.6); Bilirubin, Total 1.1 mg/dL (0.2-1.2); Calc. Creatinine Clearance 33 mL/min (70-130); Calcium 8.6 mg/dL (7.8-10.44); Carbon Dioxide 26 mmol/L (22-29); Chloride 92 mmol/L (98-107); Globulin 2.2 g/dL (2.4-3.5); Glucose 120 mg/dL (70-105); Potassium 3.8 mmol/L (3.5-5.1); Protein, Total 5.6 g/dL (6.0-8.3); Sodium 125 mmol/L (136-145)
[2021-03-11] MEDS: Rifaximin 550 MG TAB PO SCH ×2 (08:54→20:20)
[2021-03-11] MEDS: Pantoprazole 40 MG VIAL IVP SCH (08:54)
[2021-03-11] MEDS: hydrOXYzine 25 MG TAB PO SCH ×4 (08:54→20:20)
[2021-03-11 13:45] LABS: #Basophils 0.1 thou/uL (0.0-0.2); #Eosinphils 0.4 thou/uL (0.0-0.7); #Lymphocytes 0.9 thou/uL (1.20-3.40); #Monocytes 0.6 thou/uL (0.11-0.59); #Neutrophils 4.4 thou/uL (1.40-6.50); %Basophils 1.4 % (0.0-1.0); %Eosinophils 6.1 % (0.0-10.0); %Monocytes 8.8 % (0.0-10.0); %Neutrophils 69.7 % (42.0-75.0); Hemoglobin 8.1 g/dL (14.0-18.0); Mean Corpuscular HGB CONC 34.6 g/dL (32.0-36.0); Mean Corpuscular Hemoglobin 31.9 pg (27.0-31.0); Mean Corpuscular Volume 92.2 fL (78.0-98.0); Mean Platelet Volume 8.4 fL (7.4-10.4); Platelet Count 98 thou/uL (130-400); RBC Distribution Width 17.1 % (11.5-14.5); Red Blood Cell (RBC) Count 2.52 mill/uL (4.70-6.10); White Blood Cell (WBC) Count 6.3 thou/uL (4.8-10.8)
[2021-03-11] MEDS: cefTRIAXone\\ROCEPHIN 1 GM in Sodium Chloride 0.9% 100 ML IVPB SCH (14:00)
[2021-03-11] MEDS: Albumin 25% 25 GM/100 ML BOT IVPB SCH ×2 (15:11→20:21)
[2021-03-11] MEDS: Midodrine HCl 5 MG TAB PO SCH ×2 (15:11→20:20)
[2021-03-11] MEDS: traMADol HCl 50 MG TAB PO PRN ×2 (15:16→19:08)
[2021-03-11] MEDS: Octreotide Acetate 1,250 MCG in Sodium Chloride 0.9% 250 ML 250 ML IVPB SCH (18:18)
[2021-03-12] MEDS: traMADol HCl 50 MG TAB PO PRN ×3 (01:29→20:24)
[2021-03-12 03:56] LABS: #Basophils 0.1 thou/uL (0.0-0.2); #Eosinphils 0.3 thou/uL (0.0-0.7); #Lymphocytes 0.7 thou/uL (1.20-3.40); #Monocytes 0.5 thou/uL (0.11-0.59); #Neutrophils 3.1 thou/uL (1.40-6.50); %Basophils 1.2 % (0.0-1.0); %Eosinophils 6.6 % (0.0-10.0); %Lymphocytes 16.1 % (21.0-51.0); %Monocytes 10.1 % (0.0-10.0); Mean Corpuscular HGB CONC 34.2 g/dL (32.0-36.0); Mean Corpuscular Volume 93.6 fL (78.0-98.0); Mean Platelet Volume 8.3 fL (7.4-10.4); Platelet Count 84 thou/uL (130-400); RBC Distribution Width 17.5 % (11.5-14.5); White Blood Cell (WBC) Count 4.6 thou/uL (4.8-10.8)
[2021-03-12 04:12] LABS: Elliptocytes SLIGHT = 2-5 cells (100X) (0-1/hpf); MDiff Complete? YES; Platelet Morphology Comment Appears Decreased; Polychromasia SLIGHT = 2-3 cells (100X) (0-2/hpf)
[2021-03-12 04:20] LABS: Anion Gap 12 mmol/L (10-20); BUN (Urea Nitrogen) 56 mg/dL (8.9-20.6); Calc. Creatinine Clearance 36 mL/min (70-130); Calcium 8.8 mg/dL (7.8-10.44); Carbon Dioxide 24 mmol/L (22-29); Chloride 92 mmol/L (98-107); Glucose 121 mg/dL (70-105); Potassium 3.9 mmol/L (3.5-5.1); Sodium 124 mmol/L (136-145)
[2021-03-12] MEDS: Midodrine HCl 5 MG TAB PO SCH ×3 (08:20→14:49)
[2021-03-12] MEDS: Pantoprazole 40 MG VIAL IVP SCH (08:49)
[2021-03-12] MEDS: hydrOXYzine 25 MG TAB PO SCH ×4 (08:49→20:24)
[2021-03-12] MEDS: Rifaximin 550 MG TAB PO SCH ×2 (08:49→20:24)
[2021-03-12] MEDS: Albumin 25% 25 GM/100 ML BOT IVPB SCH ×2 (08:49→15:48)
[2021-03-12 12:32] VITALS: BMI 33.4
[2021-03-12] MEDS: cefTRIAXone\\ROCEPHIN 1 GM in Sodium Chloride 0.9% 100 ML IVPB SCH (14:48)
[2021-03-12] MEDS: Octreotide Acetate 1,250 MCG in Sodium Chloride 0.9% 250 ML 250 ML IVPB SCH (17:00)
[2021-03-13 04:40] LABS: #Eosinphils 0.2 thou/uL (0.0-0.7); #Lymphocytes 0.5 thou/uL (1.20-3.40); #Monocytes 0.3 thou/uL (0.11-0.59); %Basophils 0.5 % (0.0-1.0); %Eosinophils 7.3 % (0.0-10.0); %Monocytes 9.8 % (0.0-10.0); %Neutrophils 65.5 % (42.0-75.0); Hemoglobin 7.3 g/dL (14.0-18.0); Mean Corpuscular HGB CONC 33.9 g/dL (32.0-36.0); Mean Corpuscular Hemoglobin 31.6 pg (27.0-31.0); Mean Platelet Volume 8.2 fL (7.4-10.4); Platelet Count 76 thou/uL (130-400); RBC Distribution Width 17.5 % (11.5-14.5); Red Blood Cell (RBC) Count 2.31 mill/uL (4.70-6.10); White Blood Cell (WBC) Count 3.1 thou/uL (4.8-10.8)
[2021-03-13 04:58] LABS: Anion Gap 12 mmol/L (10-20); BUN (Urea Nitrogen) 55 mg/dL (8.9-20.6); Calc. Creatinine Clearance 45 mL/min (70-130); Calcium 8.8 mg/dL (7.8-10.44); Carbon Dioxide 24 mmol/L (22-29); Chloride 95 mmol/L (98-107); Glucose 116 mg/dL (70-105); Potassium 3.7 mmol/L (3.5-5.1); Sodium 127 mmol/L (136-145)
[2021-03-13] MEDS: hydrOXYzine 25 MG TAB PO SCH ×4 (09:01→21:03)
[2021-03-13] MEDS: Rifaximin 550 MG TAB PO SCH ×2 (09:01→21:04)
[2021-03-13] MEDS: Pantoprazole 40 MG VIAL IVP SCH (09:01)
[2021-03-13] MEDS: Midodrine HCl 5 MG TAB PO SCH ×3 (09:01→21:04)
[2021-03-13] MEDS: Ondansetron PF 4 MG/2 ML Vial IVP PRN ×3 (10:19→21:55)
[2021-03-13] MEDS ORDERED: Albumin 25% 25 GM/100 ML BOT IVPB SCH (11:30)
[2021-03-13] MEDS: cefTRIAXone\\ROCEPHIN 1 GM in Sodium Chloride 0.9% 100 ML IVPB SCH (13:26)
[2021-03-13] MEDS: Octreotide Acetate 1,250 MCG in Sodium Chloride 0.9% 250 ML 250 ML IVPB SCH (16:15)
[2021-03-13] MEDS: traMADol HCl 50 MG TAB PO PRN (21:56)
[2021-03-14] MEDS: hydrOXYzine 25 MG TAB PO SCH ×2 (08:29→13:25)
[2021-03-14] MEDS: Midodrine HCl 5 MG TAB PO SCH ×2 (08:29→15:13)
[2021-03-14] MEDS: Rifaximin 550 MG TAB PO SCH (08:29)
[2021-03-14] MEDS: Pantoprazole 40 MG VIAL IVP SCH (08:31)
[2021-03-14 10:18] LABS: Anion Gap 14 mmol/L (10-20); BUN (Urea Nitrogen) 47 mg/dL (8.9-20.6); Calc. Creatinine Clearance 44 mL/min (70-130); Calcium 8.9 mg/dL (7.8-10.44); Carbon Dioxide 20 mmol/L (22-29); Chloride 96 mmol/L (98-107); Glucose 165 mg/dL (70-105); Potassium 3.4 mmol/L (3.5-5.1); Sodium 127 mmol/L (136-145)
[2021-03-14] MEDS ORDERED: Potassium Chloride 20 MEQ TAB PO SCH (11:00)
[2021-03-14] MEDS: cefTRIAXone\\ROCEPHIN 1 GM in Sodium Chloride 0.9% 100 ML IVPB SCH (13:24)
[2021-03-14 15:55] VITALS: BP 103/66; TEMP 98
== END 2021-03-14 15:40 | disposition home or self-care (01) | DRG 432 ==
LOC: ERS 13:16 → 2SW 17:16 → OBSVTOIN 03-08 09:11 → CCU 03-08 16:19 → 2NO 03-09 11:51 → T4-B 03-13 16:29
PROVIDERS: ADMIT Internal Medicine; ATTEND Internal Medicine
PROC: 30233N1 Transfusion of Nonautologous Red Blood Cells into Peripheral Vein, Percutaneous Approach (ICD-10-PCS; principal; 2021-03-08)
PROC: 5A1D70Z Performance of Urinary Filtration, Intermittent, Less than 6 Hours Per Day (ICD-10-PCS; 2021-03-08)
PROC: 06L38CZ Occlusion of Esophageal Vein with Extraluminal Device, Via Natural or Artificial Opening Endoscopic (ICD-10-PCS; 2021-03-08)
PROC: 02HV33Z Insertion of Infusion Device into Superior Vena Cava, Percutaneous Approach (ICD-10-PCS; 2021-03-08)
PROC: 0W9G3ZZ Drainage of Peritoneal Cavity, Percutaneous Approach (ICD-10-PCS; 2021-03-12)
DX: K70.31 Alcoholic cirrhosis of liver with ascites (principal); I85.11 Secondary esophageal varices with bleeding; K76.7 Hepatorenal syndrome; D62 Acute posthemorrhagic anemia; N17.9 Acute kidney failure, unspecified; E87.1 Hypo-osmolality and hyponatremia; C22.0 Liver cell carcinoma; E87.2 Acidosis; N18.4 Chronic kidney disease, stage 4 (severe); Z20.822 Contact with and (suspected) exposure to COVID-19; E87.5 Hyperkalemia; E16.2 Hypoglycemia, unspecified; R79.1 Abnormal coagulation profile; D63.1 Anemia in chronic kidney disease; E66.9 Obesity, unspecified; R73.03 Prediabetes; E88.09 Other disorders of plasma-protein metabolism, not elsewhere classified; F10.10 Alcohol abuse, uncomplicated; J45.909 Unspecified asthma, uncomplicated; K21.9 Gastro-esophageal reflux disease without esophagitis; Z68.31 Body mass index [BMI] 31.0-31.9, adult; Z90.49 Acquired absence of other specified parts of digestive tract; Z79.899 Other long term (current) drug therapy
CPT/HCPCS: 36415; 36416; 36430; 49083; 80048; 80053; 81003; 82140; 83036; 83930; 83935; 84300; 85025; 85610; 85730; 86580; 86704; 86706; 86803; 86850; 86900; 86901; 87040; 87086; 87340; 87522; 90935; 93005; 93010; 93970; 96374; 96375; 96376; C9113; G0257; G0378; J0696; J1642; J1644; J2354; J2405; J2704; J2765; J3010; J3490; J7050; P9016; P9047; U0002; U0003; U0005

== ENCOUNTER 2021-03-27 11:39 | Inpatient (IN) | payer OTHER ==
[2021-03-27 12:55] LABS: #Eosinphils 0.2 thou/uL (0.0-0.7); #Lymphocytes 0.7 thou/uL (1.20-3.40); #Monocytes 0.5 thou/uL (0.11-0.59); #Neutrophils 3.3 thou/uL (1.40-6.50); %Basophils 0.6 % (0.0-1.0); %Eosinophils 3.5 % (0.0-10.0); %Lymphocytes 15.3 % (21.0-51.0); %Monocytes 10.2 % (0.0-10.0); %Neutrophils 70.4 % (42.0-75.0); Hemoglobin 9.5 g/dL (14.0-18.0); Mean Corpuscular HGB CONC 33.6 g/dL (32.0-36.0); Mean Corpuscular Hemoglobin 32.2 pg (27.0-31.0); Mean Corpuscular Volume 95.8 fL (78.0-98.0); Mean Platelet Volume 7.9 fL (7.4-10.4); Platelet Count 112 thou/uL (130-400); RBC Distribution Width 17.7 % (11.5-14.5); Red Blood Cell (RBC) Count 2.95 mill/uL (4.70-6.10); White Blood Cell (WBC) Count 4.7 thou/uL (4.8-10.8)
[2021-03-27 13:18] LABS: ALT (SGPT) 26 U/L (8-55); AST (SGOT) 55 U/L (5-34); Alkaline Phosphatase 263 U/L (40-110); Anion Gap 21 mmol/L (10-20); BUN (Urea Nitrogen) 76 mg/dL (8.9-20.6); Bilirubin, Total 1.4 mg/dL (0.2-1.2); Calc. Creatinine Clearance 0 mL/min (70-130); Calcium 9.7 mg/dL (7.8-10.44); Carbon Dioxide 14 mmol/L (22-29); Chloride 97 mmol/L (98-107); Globulin 2.8 g/dL (2.4-3.5); Glucose 143 mg/dL (70-105); Potassium 5.1 mmol/L (3.5-5.1); Protein, Total 6.8 g/dL (6.0-8.3); Sodium 127 mmol/L (136-145)
[2021-03-27] MEDS ORDERED: Rifaximin 550 MG TAB PO SCH (19:15)
[2021-03-27] MEDS ORDERED: Midodrine HCl 5 MG TAB PO SCH (19:15)
[2021-03-27] MEDS ORDERED: hydrALAZINE 25 MG TAB ONE (19:16)
[2021-03-27] MEDS ORDERED: hydrOXYzine 25 MG TAB ONE (19:17)
[2021-03-27] MEDS ORDERED: Ondansetron PF 4 MG/2 ML Vial ONE (19:54)
[2021-03-27] MEDS ORDERED: Sodium Chloride 0.9% 1,000 ML IV SCH (21:15)
[2021-03-27] MEDS ORDERED: Zolpidem Tartrate 5 MG TAB PO PRN (22:12)
[2021-03-27] MEDS ORDERED: traMADol HCl 50 MG TAB PO PRN (22:14)
[2021-03-27 22:20] VITALS: BMI 29.8
[2021-03-27] MEDS: Albumin 25% 25 GM/100 ML BOT IVPB SCH (22:54)
[2021-03-27] MEDS: Sodium Bicarbonate 150 MEQ in Dextrose 5% in Water 1,000 ML IV SCH (23:00)
[2021-03-27] MEDS: Nicotine 14 MG PATCH TD SCH (23:05)
[2021-03-27 23:42] LABS: Creatinine, Urine 137.37 mg/dL (63-166); Sodium, Urine Less than 20 mmol/L (Not Available)
[2021-03-28 05:13] LABS: #Eosinphils 0.2 thou/uL (0.0-0.7); #Lymphocytes 0.8 thou/uL (1.20-3.40); #Monocytes 0.3 thou/uL (0.11-0.59); #Neutrophils 2.4 thou/uL (1.40-6.50); %Basophils 1.1 % (0.0-1.0); %Eosinophils 4.9 % (0.0-10.0); %Lymphocytes 22.3 % (21.0-51.0); %Monocytes 9.1 % (0.0-10.0); %Neutrophils 62.7 % (42.0-75.0); Hemoglobin 8.9 g/dL (14.0-18.0); Mean Corpuscular HGB CONC 33.7 g/dL (32.0-36.0); Mean Corpuscular Hemoglobin 31.5 pg (27.0-31.0); Mean Corpuscular Volume 93.4 fL (78.0-98.0); Mean Platelet Volume 8.2 fL (7.4-10.4); Platelet Count 107 thou/uL (130-400); RBC Distribution Width 17.5 % (11.5-14.5); Red Blood Cell (RBC) Count 2.84 mill/uL (4.70-6.10); White Blood Cell (WBC) Count 3.8 thou/uL (4.8-10.8)
[2021-03-28 05:24] LABS: Anion Gap 16 mmol/L (10-20); BUN (Urea Nitrogen) 73 mg/dL (8.9-20.6); Calc. Creatinine Clearance 21 mL/min (70-130); Calcium 9.5 mg/dL (7.8-10.44); Carbon Dioxide 17 mmol/L (22-29); Chloride 101 mmol/L (98-107); Glucose 116 mg/dL (70-105); Sodium 129 mmol/L (136-145)
[2021-03-28] MEDS: Midodrine HCl 5 MG TAB PO SCH ×3 (06:05→21:01)
[2021-03-28] MEDS: Albumin 25% 25 GM/100 ML BOT IVPB SCH ×4 (06:20→21:08)
[2021-03-28] MEDS: Rifaximin 550 MG TAB PO SCH ×2 (08:48→21:01)
[2021-03-28] MEDS: Enoxaparin Sodium 30 MG/0.3 ML SYRINGE SC SCH (08:48)
[2021-03-28 11:21] LABS: SARS-CoV-2 PCR by NAA Not Detected (NotDetected)
[2021-03-28] MEDS: Ondansetron PF 4 MG/2 ML Vial IVP PRN (18:28)
[2021-03-28] MEDS: hydrOXYzine 25 MG TAB PO SCH (20:59)
[2021-03-28] MEDS: Nicotine 14 MG PATCH TD SCH (21:03)
[2021-03-29] MEDS: Midodrine HCl 5 MG TAB PO SCH ×3 (05:35→21:02)
[2021-03-29 05:47] LABS: #Eosinphils 0.1 thou/uL (0.0-0.7); #Lymphocytes 0.8 thou/uL (1.20-3.40); #Monocytes 0.4 thou/uL (0.11-0.59); %Basophils 0.6 % (0.0-1.0); %Eosinophils 3.9 % (0.0-10.0); %Lymphocytes 23.2 % (21.0-51.0); %Monocytes 10.8 % (0.0-10.0); %Neutrophils 61.5 % (42.0-75.0); Hemoglobin 8.6 g/dL (14.0-18.0); Mean Corpuscular HGB CONC 34.6 g/dL (32.0-36.0); Mean Corpuscular Hemoglobin 32.2 pg (27.0-31.0); Mean Corpuscular Volume 92.8 fL (78.0-98.0); Mean Platelet Volume 8.1 fL (7.4-10.4); Platelet Count 102 thou/uL (130-400); RBC Distribution Width 17.3 % (11.5-14.5); Red Blood Cell (RBC) Count 2.68 mill/uL (4.70-6.10); White Blood Cell (WBC) Count 3.3 thou/uL (4.8-10.8)
[2021-03-29 06:11] LABS: ALT (SGPT) 25 U/L (8-55); AST (SGOT) 58 U/L (5-34); Albumin 4.3 g/dL (3.5-5.0); Alkaline Phosphatase 229 U/L (40-110); Anion Gap 20 mmol/L (10-20); BUN (Urea Nitrogen) 71 mg/dL (8.9-20.6); Bilirubin, Total 2.4 mg/dL (0.2-1.2); Calc. Creatinine Clearance 20 mL/min (70-130); Calcium 9.9 mg/dL (7.8-10.44); Carbon Dioxide 16 mmol/L (22-29); Chloride 98 mmol/L (98-107); Globulin 2.6 g/dL (2.4-3.5); Glucose 114 mg/dL (70-105); Magnesium 2.1 mg/dL (1.6-2.6); Phosphorus 3.9 mg/dL (2.3-4.7); Potassium 4.7 mmol/L (3.5-5.1); Protein, Total 6.9 g/dL (6.0-8.3); Sodium 129 mmol/L (136-145)
[2021-03-29] MEDS: hydrOXYzine 25 MG TAB PO SCH ×4 (09:04→21:02)
[2021-03-29] MEDS: Enoxaparin Sodium 30 MG/0.3 ML SYRINGE SC SCH (09:04)
[2021-03-29] MEDS: Rifaximin 550 MG TAB PO SCH ×2 (09:05→21:02)
[2021-03-29] MEDS ORDERED: ceFAZolin 2 GM/Dextrose 50 ML 2 GM in Premix Bag 1 BAG IVPB SCH (10:15)
[2021-03-29] MEDS ORDERED: EPOETIN ALFA-EPBX (ESRD) 10,000 UNIT/ML VIAL SC SCH (11:30)
[2021-03-29] MEDS: Ondansetron PF 4 MG/2 ML Vial IVP PRN ×2 (12:01→18:20)
[2021-03-29] MEDS: Sodium Bicarbonate 150 MEQ in Dextrose 5% in Water 1,000 ML IV SCH (12:03)
[2021-03-29] MEDS: Nicotine 14 MG PATCH TD SCH (21:03)
[2021-03-30] MEDS: Ondansetron PF 4 MG/2 ML Vial IVP PRN ×3 (00:07→17:09)
[2021-03-30] MEDS ORDERED: Promethazine HCl 12.5 MG in Sodium Chloride 0.9% 50 ML IVPB SCH (03:45)
[2021-03-30 04:27] LABS: #Eosinphils 0.1 thou/uL (0.0-0.7); #Lymphocytes 0.6 thou/uL (1.20-3.40); #Monocytes 0.4 thou/uL (0.11-0.59); %Basophils 0.9 % (0.0-1.0); %Eosinophils 4.2 % (0.0-10.0); %Lymphocytes 19.6 % (21.0-51.0); %Monocytes 11.5 % (0.0-10.0); %Neutrophils 63.8 % (42.0-75.0); Hemoglobin 7.4 g/dL (14.0-18.0); Mean Corpuscular HGB CONC 35.6 g/dL (32.0-36.0); Mean Corpuscular Hemoglobin 33.4 pg (27.0-31.0); Mean Corpuscular Volume 94.1 fL (78.0-98.0); Mean Platelet Volume 8.1 fL (7.4-10.4); Platelet Count 83 thou/uL (130-400); RBC Distribution Width 17.1 % (11.5-14.5); Red Blood Cell (RBC) Count 2.22 mill/uL (4.70-6.10); White Blood Cell (WBC) Count 3.2 thou/uL (4.8-10.8)
[2021-03-30 04:42] LABS: INR-International Normal Ratio 1.4; PTT 38.1 sec (22.9-36.1); Prothrombin Time 17.7 sec (12.0-14.7)
[2021-03-30 04:43] LABS: ALT (SGPT) 17 U/L (8-55); AST (SGOT) 47 U/L (5-34); Albumin 3.2 g/dL (3.5-5.0); Alkaline Phosphatase 181 U/L (40-110); Anion Gap 13 mmol/L (10-20); BUN (Urea Nitrogen) 56 mg/dL (8.9-20.6); Bilirubin, Total 1.8 mg/dL (0.2-1.2); Calc. Creatinine Clearance 28 mL/min (70-130); Calcium 7.8 mg/dL (7.8-10.44); Carbon Dioxide 17 mmol/L (22-29); Chloride 108 mmol/L (98-107); Glucose 103 mg/dL (70-105); Potassium 3.4 mmol/L (3.5-5.1); Protein, Total 5.2 g/dL (6.0-8.3); Sodium 135 mmol/L (136-145)
[2021-03-30] MEDS: Midodrine HCl 5 MG TAB PO SCH ×3 (04:57→21:27)
[2021-03-30] MEDS: Enoxaparin Sodium 30 MG/0.3 ML SYRINGE SC SCH (08:59)
[2021-03-30] MEDS: Rifaximin 550 MG TAB PO SCH ×2 (09:00→20:35)
[2021-03-30] MEDS: hydrOXYzine 25 MG TAB PO SCH ×4 (09:00→20:36)
[2021-03-30] MEDS: Sodium Bicarbonate 150 MEQ in Dextrose 5% in Water 1,000 ML IV SCH (11:34)
[2021-03-30] MEDS ORDERED: Melatonin 3 MG TAB PO SCH (20:50)
[2021-03-30] MEDS: Nicotine 14 MG PATCH TD SCH (22:17)
[2021-03-31] MEDS: Ondansetron PF 4 MG/2 ML Vial IVP PRN ×3 (00:27→13:43)
[2021-03-31] MEDS: Midodrine HCl 5 MG TAB PO SCH ×2 (06:06→13:03)
[2021-03-31] MEDS: hydrOXYzine 25 MG TAB PO SCH ×3 (08:26→16:02)
[2021-03-31] MEDS: Rifaximin 550 MG TAB PO SCH (08:26)
[2021-03-31] MEDS: Enoxaparin Sodium 30 MG/0.3 ML SYRINGE SC SCH (08:27)
[2021-03-31 11:44] LABS: #Eosinphils 0.2 thou/uL (0.0-0.7); #Lymphocytes 0.5 thou/uL (1.20-3.40); #Monocytes 0.4 thou/uL (0.11-0.59); #Neutrophils 2.2 thou/uL (1.40-6.50); %Basophils 1.1 % (0.0-1.0); %Eosinophils 5.7 % (0.0-10.0); %Lymphocytes 14.7 % (21.0-51.0); %Monocytes 11.7 % (0.0-10.0); %Neutrophils 66.8 % (42.0-75.0); Hemoglobin 9.3 g/dL (14.0-18.0); Mean Corpuscular HGB CONC 33.2 g/dL (32.0-36.0); Mean Corpuscular Hemoglobin 31.5 pg (27.0-31.0); Mean Corpuscular Volume 94.8 fL (78.0-98.0); Mean Platelet Volume 8.2 fL (7.4-10.4); Platelet Count 106 thou/uL (130-400); RBC Distribution Width 16.7 % (11.5-14.5); Red Blood Cell (RBC) Count 2.94 mill/uL (4.70-6.10); White Blood Cell (WBC) Count 3.4 thou/uL (4.8-10.8)
[2021-03-31 12:09] LABS: ALT (SGPT) 23 U/L (8-55); AST (SGOT) 58 U/L (5-34); Albumin 3.8 g/dL (3.5-5.0); Alkaline Phosphatase 234 U/L (40-110); Anion Gap 16 mmol/L (10-20); BUN (Urea Nitrogen) 66 mg/dL (8.9-20.6); Bilirubin, Total 2.1 mg/dL (0.2-1.2); Calc. Creatinine Clearance 24 mL/min (70-130); Calcium 9.8 mg/dL (7.8-10.44); Carbon Dioxide 25 mmol/L (22-29); Chloride 93 mmol/L (98-107); Globulin 2.8 g/dL (2.4-3.5); Glucose 132 mg/dL (70-105); Potassium 3.5 mmol/L (3.5-5.1); Protein, Total 6.6 g/dL (6.0-8.3); Sodium 130 mmol/L (136-145)
[2021-03-31 16:46] VITALS: BP 119/65; TEMP 98.3
== END 2021-03-31 17:51 | disposition home or self-care (01) | DRG 441 ==
LOC: ERS 11:39 → 2NO 19:35
PROVIDERS: ADMIT Internal Medicine; ATTEND Internal Medicine
DX: K76.7 Hepatorenal syndrome (principal); N17.0 Acute kidney failure with tubular necrosis; E87.2 Acidosis; E87.1 Hypo-osmolality and hyponatremia; D61.818 Other pancytopenia; C22.0 Liver cell carcinoma; K70.31 Alcoholic cirrhosis of liver with ascites; Z20.822 Contact with and (suspected) exposure to COVID-19; N18.30 Chronic kidney disease, stage 3 unspecified; I12.9 Hypertensive chronic kidney disease with stage 1 through stage 4 chronic kidney disease, or unspecified chronic kidney disease; F17.220 Nicotine dependence, chewing tobacco, uncomplicated; E87.5 Hyperkalemia; D63.1 Anemia in chronic kidney disease; E87.70 Fluid overload, unspecified; Z79.899 Other long term (current) drug therapy; Z76.82 Awaiting organ transplant status; Z90.49 Acquired absence of other specified parts of digestive tract
CPT/HCPCS: 36415; 80048; 80053; 82570; 83735; 84100; 84300; 84443; 84484; 85025; 85610; 85730; 93005; 96374; J1650; J2405; J2550; J7050; J7070; P9047; Q5105; U0003; U0005

== ENCOUNTER 2021-04-07 10:07 | Inpatient (IN) | payer OTHER ==
[2021-04-07 10:45] LABS: #Eosinphils 0.2 thou/uL (0.0-0.7); #Lymphocytes 0.8 thou/uL (1.20-3.40); #Monocytes 0.3 thou/uL (0.11-0.59); #Neutrophils 6.4 thou/uL (1.40-6.50); %Basophils 0.4 % (0.0-1.0); %Eosinophils 3.1 % (0.0-10.0); %Lymphocytes 9.7 % (21.0-51.0); %Monocytes 4.1 % (0.0-10.0); %Neutrophils 82.7 % (42.0-75.0); Hemoglobin 10.5 g/dL (14.0-18.0); Mean Corpuscular HGB CONC 32.8 g/dL (32.0-36.0); Mean Corpuscular Hemoglobin 30.9 pg (27.0-31.0); Mean Corpuscular Volume 94.3 fL (78.0-98.0); Mean Platelet Volume 8.4 fL (7.4-10.4); Platelet Count 151 thou/uL (130-400); RBC Distribution Width 17.3 % (11.5-14.5); White Blood Cell (WBC) Count 7.7 thou/uL (4.8-10.8)
[2021-04-07 11:06] LABS: ALT (SGPT) 26 U/L (8-55); AST (SGOT) 61 U/L (5-34); Albumin 4.1 g/dL (3.5-5.0); Alkaline Phosphatase 294 U/L (40-110); Anion Gap 24 mmol/L (10-20); BUN (Urea Nitrogen) 87 mg/dL (8.9-20.6); Bilirubin, Total 2.4 mg/dL (0.2-1.2); Calc. Creatinine Clearance 0 mL/min (70-130); Carbon Dioxide 16 mmol/L (22-29); Chloride 93 mmol/L (98-107); Globulin 3.3 g/dL (2.4-3.5); Glucose 192 mg/dL (70-105); Lipase 125 U/L (8-78); Potassium 4.3 mmol/L (3.5-5.1); Protein, Total 7.4 g/dL (6.0-8.3); Sodium 129 mmol/L (136-145)
[2021-04-07] MEDS ORDERED: cefTRIAXone\\ROCEPHIN 1 GM VIAL ONE (11:51)
[2021-04-07 13:24] LABS: Bilirubin Negative (Negative); Blood, Urine Negative (Negative); Glucose, Urine (Dipstick) Negative (Negative); Ketone, Urine Negative (Negative); Leukocyte Negative (Negative); Nitrite Negative (Negative); Protein, Urine (Dipstick) Negative (Neg-Trace); Urobilinogen 0.2 mg/dL (Less than 2); pH, Urine 5.5 (5.0-9.0)
[2021-04-07 13:25] LABS: Clarity Hazy (Clear)
[2021-04-07 13:44] LABS: RBC/HPF None Seen HPF (0-3); WBC/HPF 0-3 HPF (0-3)
[2021-04-07 13:45] LABS: Bacteria/HPF None Seen HPF (None Seen)
[2021-04-07] MEDS ORDERED: Albumin 25% 25 GM/100 ML BOT IVPB SCH (13:45)
[2021-04-07 13:49] LABS: BF Color Yellow; Body Fluid Source Peritoneal Fluid; Clarity Hazy (Clear); Tube # 1
[2021-04-07 13:52] LABS: Lactic Acid 2.9 mmol/L (0.5-2.2)
[2021-04-07 13:58] LABS: BF RBC Count - Manual 698 /cu.mm; BF WBC/Nonhematics Ct.-Manual 49 /cu.mm
[2021-04-07 15:20] LABS: BF Segmented Neutrophils 8 %; Cell Count Non Hematic 52 %; Eosinophils 2 %; Lymphocytes 36 %
[2021-04-07] MEDS ORDERED: Acetaminophen 325 MG TAB PO PRN (16:10)
[2021-04-07] MEDS: Pantoprazole 40 MG VIAL IVP SCH (21:45)
[2021-04-07] MEDS: Rifaximin 550 MG TAB PO SCH (21:45)
[2021-04-07] MEDS: Nicotine 14 MG PATCH TD SCH (21:45)
[2021-04-07] MEDS: Midodrine HCl 5 MG TAB PO SCH (21:45)
[2021-04-08] MEDS: Ondansetron PF 4 MG/2 ML Vial IVP PRN ×3 (03:43→22:06)
[2021-04-08] MEDS: Enoxaparin Sodium 30 MG/0.3 ML SYRINGE SC SCH (08:35)
[2021-04-08] MEDS: Rifaximin 550 MG TAB PO SCH ×2 (08:35→20:05)
[2021-04-08] MEDS: Pantoprazole 40 MG VIAL IVP SCH ×2 (08:36→20:06)
[2021-04-08 08:45] LABS: INR-International Normal Ratio 1.3; Prothrombin Time 16.7 sec (12.0-14.7)
[2021-04-08] MEDS: Midodrine HCl 5 MG TAB PO SCH ×3 (08:52→20:06)
[2021-04-08 08:58] LABS: #Eosinphils 0.1 thou/uL (0.0-0.7); #Lymphocytes 0.6 thou/uL (1.20-3.40); #Monocytes 0.3 thou/uL (0.11-0.59); #Neutrophils 1.6 thou/uL (1.40-6.50); %Basophils 0.4 % (0.0-1.0); %Eosinophils 4.3 % (0.0-10.0); %Lymphocytes 22.9 % (21.0-51.0); %Monocytes 12.2 % (0.0-10.0); %Neutrophils 60.2 % (42.0-75.0); Hemoglobin 7.7 g/dL (14.0-18.0); Mean Corpuscular HGB CONC 33.5 g/dL (32.0-36.0); Mean Corpuscular Volume 92.5 fL (78.0-98.0); Mean Platelet Volume 9.1 fL (7.4-10.4); Platelet Count 70 thou/uL (130-400); Red Blood Cell (RBC) Count 2.49 mill/uL (4.70-6.10); White Blood Cell (WBC) Count 2.7 thou/uL (4.8-10.8)
[2021-04-08 08:58] LABS: Lactic Acid 1.2 mmol/L (0.5-2.2)
[2021-04-08] MEDS ORDERED: FLU VACC QS2021-22(6MOS UP)/PF 60 MCG/0.5 ML SYRINGE IM ONE (09:00)
[2021-04-08] MEDS ORDERED: Prevnar 13-Val Conj/PF 0.5 ML SYRINGE IM ONE (09:00)
[2021-04-08 09:15] LABS: ALT (SGPT) 15 U/L (8-55); AST (SGOT) 40 U/L (5-34); Albumin 4.7 g/dL (3.5-5.0); Alkaline Phosphatase 187 U/L (40-110); Anion Gap 24 mmol/L (10-20); BUN (Urea Nitrogen) 87 mg/dL (8.9-20.6); Bilirubin, Total 2.1 mg/dL (0.2-1.2); Calc. Creatinine Clearance 19 mL/min (70-130); Calcium 10.3 mg/dL (7.8-10.44); Carbon Dioxide 18 mmol/L (22-29); Chloride 94 mmol/L (98-107); Globulin 2.3 g/dL (2.4-3.5); Glucose 112 mg/dL (70-105); Potassium 3.7 mmol/L (3.5-5.1); Sodium 132 mmol/L (136-145)
[2021-04-08] MEDS: cefTRIAXone\\ROCEPHIN 1 GM in Sodium Chloride 0.9% 100 ML IVPB SCH (12:24)
[2021-04-08] MEDS: traMADol HCl 50 MG TAB PO PRN (16:24)
[2021-04-08 16:32] LABS: SARS-CoV-2 PCR by NAA Not Detected (NotDetected)
[2021-04-08] MEDS: hydrOXYzine 25 MG TAB PO SCH ×2 (17:00→20:06)
[2021-04-08] MEDS: Nicotine 14 MG PATCH TD SCH (17:00)
[2021-04-08 19:33] LABS: Hemoglobin 8.1 g/dL (14.0-18.0)
[2021-04-08] MEDS: Sodium Chloride 0.9% 1,000 ML IV SCH (19:57)
[2021-04-08] MEDS: Albumin 25% 25 GM/100 ML BOT IVPB SCH (20:05)
[2021-04-08] MEDS: Octreotide Acetate 1,250 MCG in Sodium Chloride 0.9% 250 ML 250 ML IVPB SCH (20:17)
[2021-04-09] MEDS: Ondansetron PF 4 MG/2 ML Vial IVP PRN ×5 (03:58→20:40)
[2021-04-09 04:35] LABS: Anion Gap 19 mmol/L (10-20); BUN (Urea Nitrogen) 80 mg/dL (8.9-20.6); Calc. Creatinine Clearance 21 mL/min (70-130); Calcium 9.9 mg/dL (7.8-10.44); Carbon Dioxide 19 mmol/L (22-29); Chloride 97 mmol/L (98-107); Glucose 170 mg/dL (70-105); Platelet Count 81 thou/uL (130-400); Potassium 3.8 mmol/L (3.5-5.1); Sodium 131 mmol/L (136-145)
[2021-04-09 04:36] LABS: Hemoglobin 8.2 g/dL (14.0-18.0); Mean Corpuscular HGB CONC 33.3 g/dL (32.0-36.0); Mean Corpuscular Hemoglobin 30.7 pg (27.0-31.0); Mean Corpuscular Volume 92.2 fL (78.0-98.0); Mean Platelet Volume 9.2 fL (7.4-10.4); Red Blood Cell (RBC) Count 2.68 mill/uL (4.70-6.10); White Blood Cell (WBC) Count 3.1 thou/uL (4.8-10.8)
[2021-04-09] MEDS: Albumin 25% 25 GM/100 ML BOT IVPB SCH ×3 (08:46→20:38)
[2021-04-09] MEDS: hydrOXYzine 25 MG TAB PO SCH ×4 (08:46→20:38)
[2021-04-09] MEDS: Pantoprazole 40 MG VIAL IVP SCH ×2 (08:46→20:39)
[2021-04-09] MEDS: Sodium Chloride 0.9% 1,000 ML IV SCH ×2 (08:46→20:40)
[2021-04-09] MEDS: Midodrine HCl 5 MG TAB PO SCH ×3 (08:47→20:39)
[2021-04-09] MEDS: Enoxaparin Sodium 30 MG/0.3 ML SYRINGE SC SCH (08:47)
[2021-04-09] MEDS: Rifaximin 550 MG TAB PO SCH ×2 (08:47→20:41)
[2021-04-09] MEDS: cefTRIAXone\\ROCEPHIN 1 GM in Sodium Chloride 0.9% 100 ML IVPB SCH (14:05)
[2021-04-09] MEDS: traMADol HCl 50 MG TAB PO PRN ×2 (14:06→20:39)
[2021-04-09] MEDS: Nicotine 14 MG PATCH TD SCH (17:04)
[2021-04-09] MEDS: Melatonin 3 MG TAB PO SCH (20:38)
[2021-04-10] MEDS: Ondansetron PF 4 MG/2 ML Vial IVP PRN ×5 (03:11→20:43)
[2021-04-10 06:46] LABS: Hemoglobin 7.5 g/dL (14.0-18.0); Mean Corpuscular HGB CONC 32.6 g/dL (32.0-36.0); Mean Corpuscular Hemoglobin 30.8 pg (27.0-31.0); Mean Corpuscular Volume 94.5 fL (78.0-98.0); Mean Platelet Volume 8.2 fL (7.4-10.4); Platelet Count 61 thou/uL (130-400); RBC Distribution Width 16.8 % (11.5-14.5); Red Blood Cell (RBC) Count 2.44 mill/uL (4.70-6.10); White Blood Cell (WBC) Count 1.7 thou/uL (4.8-10.8)
[2021-04-10 06:59] LABS: Anion Gap 16 mmol/L (10-20); BUN (Urea Nitrogen) 66 mg/dL (8.9-20.6); Calc. Creatinine Clearance 25 mL/min (70-130); Calcium 9.1 mg/dL (7.8-10.44); Carbon Dioxide 20 mmol/L (22-29); Chloride 100 mmol/L (98-107); Glucose 130 mg/dL (70-105); Potassium 3.7 mmol/L (3.5-5.1); Sodium 132 mmol/L (136-145)
[2021-04-10] MEDS: Octreotide Acetate 1,250 MCG in Sodium Chloride 0.9% 250 ML 250 ML IVPB SCH (08:46)
[2021-04-10] MEDS: Sodium Chloride 0.9% 1,000 ML IV SCH (08:46)
[2021-04-10] MEDS: Albumin 25% 25 GM/100 ML BOT IVPB SCH ×3 (08:46→21:05)
[2021-04-10] MEDS: Midodrine HCl 5 MG TAB PO SCH ×3 (08:47→20:34)
[2021-04-10] MEDS: traMADol HCl 50 MG TAB PO PRN (08:47)
[2021-04-10] MEDS: Enoxaparin Sodium 30 MG/0.3 ML SYRINGE SC SCH (08:48)
[2021-04-10] MEDS: Pantoprazole 40 MG VIAL IVP SCH ×2 (08:48→20:35)
[2021-04-10] MEDS: Rifaximin 550 MG TAB PO SCH ×2 (08:48→20:34)
[2021-04-10] MEDS: hydrOXYzine 25 MG TAB PO SCH ×4 (08:50→20:35)
[2021-04-10] MEDS: cefTRIAXone\\ROCEPHIN 1 GM in Sodium Chloride 0.9% 100 ML IVPB SCH (13:46)
[2021-04-10] MEDS: Nicotine 14 MG PATCH TD SCH (16:35)
[2021-04-10] MEDS: Melatonin 3 MG TAB PO SCH (20:35)
[2021-04-11] MEDS: Ondansetron PF 4 MG/2 ML Vial IVP PRN ×6 (01:20→23:14)
[2021-04-11] MEDS: Sodium Chloride 0.9% 1,000 ML IV SCH ×2 (01:20→12:24)
[2021-04-11] MEDS: Rifaximin 550 MG TAB PO SCH ×2 (09:18→20:33)
[2021-04-11] MEDS: Midodrine HCl 5 MG TAB PO SCH ×3 (09:22→20:32)
[2021-04-11] MEDS: hydrOXYzine 25 MG TAB PO SCH ×4 (09:22→20:33)
[2021-04-11] MEDS: Enoxaparin Sodium 30 MG/0.3 ML SYRINGE SC SCH (09:23)
[2021-04-11] MEDS: Pantoprazole 40 MG VIAL IVP SCH ×2 (09:23→20:32)
[2021-04-11] MEDS: Albumin 25% 25 GM/100 ML BOT IVPB SCH (09:24)
[2021-04-11 10:41] LABS: Hemoglobin 8.1 g/dL (14.0-18.0); Mean Corpuscular HGB CONC 31.7 g/dL (32.0-36.0); Mean Corpuscular Hemoglobin 31.7 pg (27.0-31.0); Platelet Count 78 thou/uL (130-400); RBC Distribution Width 17.2 % (11.5-14.5); Red Blood Cell (RBC) Count 2.56 mill/uL (4.70-6.10); White Blood Cell (WBC) Count 2.1 thou/uL (4.8-10.8)
[2021-04-11 10:57] LABS: Anion Gap 15 mmol/L (10-20); BUN (Urea Nitrogen) 52 mg/dL (8.9-20.6); Calc. Creatinine Clearance 30 mL/min (70-130); Carbon Dioxide 17 mmol/L (22-29); Chloride 102 mmol/L (98-107); Glucose 140 mg/dL (70-105); Potassium 3.2 mmol/L (3.5-5.1); Sodium 131 mmol/L (136-145)
[2021-04-11 11:38] LABS: #Eosinphils 0.2 thou/uL (0.0-0.7); #Lymphocytes 0.4 thou/uL (1.20-3.40); #Monocytes 0.3 thou/uL (0.11-0.59); #Neutrophils 1.3 thou/uL (1.40-6.50); %Basophils 1.6 % (0.0-1.0); %Eosinophils 7.7 % (0.0-10.0); %Lymphocytes 16.7 % (21.0-51.0); %Monocytes 12.2 % (0.0-10.0); %Neutrophils 61.8 % (42.0-75.0); MDiff Complete? YES; Ovalocytes SLIGHT = 2-5 cells (100X) (0-1/hpf); Platelet Morphology Comment Appears Adequate; Polychromasia SLIGHT = 2-3 cells (100X) (0-2/hpf)
[2021-04-11] MEDS: cefTRIAXone\\ROCEPHIN 1 GM in Sodium Chloride 0.9% 100 ML IVPB SCH (12:24)
[2021-04-11] MEDS: Nicotine 14 MG PATCH TD SCH (17:49)
[2021-04-11] MEDS: Melatonin 3 MG TAB PO SCH (20:32)
[2021-04-12] MEDS: Ondansetron PF 4 MG/2 ML Vial IVP PRN ×4 (04:20→20:37)
[2021-04-12 07:32] LABS: #Eosinphils 0.1 thou/uL (0.0-0.7); #Lymphocytes 0.5 thou/uL (1.20-3.40); #Monocytes 0.2 thou/uL (0.11-0.59); #Neutrophils 1.3 thou/uL (1.40-6.50); %Basophils 1.7 % (0.0-1.0); %Eosinophils 6.9 % (0.0-10.0); %Lymphocytes 22.5 % (21.0-51.0); %Monocytes 10.2 % (0.0-10.0); %Neutrophils 58.8 % (42.0-75.0); Hemoglobin 7.6 g/dL (14.0-18.0); Mean Corpuscular HGB CONC 33.3 g/dL (32.0-36.0); Mean Corpuscular Hemoglobin 31.8 pg (27.0-31.0); Mean Corpuscular Volume 95.4 fL (78.0-98.0); Mean Platelet Volume 8.7 fL (7.4-10.4); Platelet Count 61 thou/uL (130-400); RBC Distribution Width 16.9 % (11.5-14.5); White Blood Cell (WBC) Count 2.1 thou/uL (4.8-10.8)
[2021-04-12] MEDS ORDERED: Fentanyl 100 MCG/2 ML VIAL ONE (08:41)
[2021-04-12] MEDS ORDERED: Ketamine 50 MG/ML (10ML VIAL) ONE (08:48)
[2021-04-12 08:56] LABS: Anion Gap 13 mmol/L (10-20); BUN (Urea Nitrogen) 46 mg/dL (8.9-20.6); Calc. Creatinine Clearance 35 mL/min (70-130); Calcium 9.1 mg/dL (7.8-10.44); Carbon Dioxide 19 mmol/L (22-29); Chloride 103 mmol/L (98-107); Glucose 124 mg/dL (70-105); Potassium 3.4 mmol/L (3.5-5.1); Sodium 132 mmol/L (136-145)
[2021-04-12] MEDS: Enoxaparin Sodium 30 MG/0.3 ML SYRINGE SC SCH (10:17)
[2021-04-12] MEDS: hydrOXYzine 25 MG TAB PO SCH ×4 (10:30→20:33)
[2021-04-12] MEDS: Pantoprazole 40 MG VIAL IVP SCH ×2 (10:30→20:32)
[2021-04-12] MEDS: Midodrine HCl 5 MG TAB PO SCH ×3 (10:31→20:32)
[2021-04-12] MEDS: Octreotide Acetate 1,250 MCG in Sodium Chloride 0.9% 250 ML 250 ML IVPB SCH (10:31)
[2021-04-12] MEDS: Sodium Chloride 0.9% 1,000 ML IV SCH ×2 (10:32→16:24)
[2021-04-12] MEDS: Rifaximin 550 MG TAB PO SCH ×2 (10:32→20:33)
[2021-04-12] MEDS ORDERED: Potassium Chloride 20 MEQ TAB PO SCH (11:00)
[2021-04-12] MEDS: cefTRIAXone\\ROCEPHIN 1 GM in Sodium Chloride 0.9% 100 ML IVPB SCH (12:41)
[2021-04-12] MEDS: Nicotine 14 MG PATCH TD SCH (16:39)
[2021-04-12] MEDS: Melatonin 3 MG TAB PO SCH (20:32)
[2021-04-13] MEDS: Ondansetron PF 4 MG/2 ML Vial IVP PRN ×6 (00:04→20:39)
[2021-04-13] MEDS: Sodium Chloride 0.9% 1,000 ML IV SCH ×2 (00:05→18:21)
[2021-04-13 07:12] LABS: #Eosinphils 0.2 thou/uL (0.0-0.7); #Lymphocytes 0.4 thou/uL (1.20-3.40); #Monocytes 0.3 thou/uL (0.11-0.59); #Neutrophils 1.4 thou/uL (1.40-6.50); %Basophils 1.6 % (0.0-1.0); %Eosinophils 8.6 % (0.0-10.0); %Lymphocytes 16.3 % (21.0-51.0); %Monocytes 13.8 % (0.0-10.0); %Neutrophils 59.7 % (42.0-75.0); Hemoglobin 7.8 g/dL (14.0-18.0); Mean Corpuscular HGB CONC 33.5 g/dL (32.0-36.0); Mean Corpuscular Hemoglobin 31.8 pg (27.0-31.0); Mean Corpuscular Volume 95.1 fL (78.0-98.0); Mean Platelet Volume 9.2 fL (7.4-10.4); Platelet Count 65 thou/uL (130-400); RBC Distribution Width 17.3 % (11.5-14.5); Red Blood Cell (RBC) Count 2.46 mill/uL (4.70-6.10); White Blood Cell (WBC) Count 2.3 thou/uL (4.8-10.8)
[2021-04-13 07:24] LABS: Anion Gap 15 mmol/L (10-20); BUN (Urea Nitrogen) 40 mg/dL (8.9-20.6); Calc. Creatinine Clearance 41 mL/min (70-130); Calcium 8.7 mg/dL (7.8-10.44); Carbon Dioxide 16 mmol/L (22-29); Chloride 106 mmol/L (98-107); Glucose 127 mg/dL (70-105); Potassium 3.7 mmol/L (3.5-5.1); Sodium 133 mmol/L (136-145)
[2021-04-13] MEDS: Pantoprazole 40 MG VIAL IVP SCH ×2 (08:32→20:39)
[2021-04-13] MEDS: Midodrine HCl 5 MG TAB PO SCH ×3 (08:33→20:38)
[2021-04-13] MEDS: hydrOXYzine 25 MG TAB PO SCH ×4 (08:33→20:38)
[2021-04-13] MEDS: Rifaximin 550 MG TAB PO SCH ×2 (08:33→20:39)
[2021-04-13] MEDS: cefTRIAXone\\ROCEPHIN 1 GM in Sodium Chloride 0.9% 100 ML IVPB SCH (12:32)
[2021-04-13] MEDS: Octreotide Acetate 1,250 MCG in Sodium Chloride 0.9% 250 ML 250 ML IVPB SCH (14:00)
[2021-04-13] MEDS: traMADol HCl 50 MG TAB PO PRN ×2 (14:00→20:42)
[2021-04-13] MEDS: Nicotine 14 MG PATCH TD SCH (16:18)
[2021-04-13] MEDS ORDERED: Acetaminophen 325 MG TAB PO PRN (17:31)
[2021-04-13] MEDS: Melatonin 3 MG TAB PO SCH (20:38)
[2021-04-14] MEDS: Ondansetron PF 4 MG/2 ML Vial IVP PRN ×6 (00:42→20:58)
[2021-04-14] MEDS: traMADol HCl 50 MG TAB PO PRN ×3 (05:09→17:37)
[2021-04-14 07:57] LABS: Anion Gap 12 mmol/L (10-20); BUN (Urea Nitrogen) 34 mg/dL (8.9-20.6); Calc. Creatinine Clearance 46 mL/min (70-130); Calcium 8.5 mg/dL (7.8-10.44); Carbon Dioxide 18 mmol/L (22-29); Chloride 108 mmol/L (98-107); Glucose 116 mg/dL (70-105); Potassium 3.6 mmol/L (3.5-5.1); Sodium 134 mmol/L (136-145)
[2021-04-14] MEDS: Rifaximin 550 MG TAB PO SCH ×2 (09:11→20:57)
[2021-04-14] MEDS: hydrOXYzine 25 MG TAB PO SCH ×4 (09:12→20:57)
[2021-04-14] MEDS: Midodrine HCl 5 MG TAB PO SCH ×3 (09:12→20:57)
[2021-04-14] MEDS: Sodium Chloride 0.9% 1,000 ML IV SCH ×2 (09:12→21:51)
[2021-04-14] MEDS: Pantoprazole 40 MG VIAL IVP SCH ×2 (09:12→20:57)
[2021-04-14] MEDS: cefTRIAXone\\ROCEPHIN 1 GM in Sodium Chloride 0.9% 100 ML IVPB SCH (11:31)
[2021-04-14] MEDS: Nicotine 14 MG PATCH TD SCH (15:11)
[2021-04-14] MEDS ORDERED: Albumin 25% 25 GM/100 ML BOT IVPB SCH (18:00)
[2021-04-14] MEDS: Melatonin 3 MG TAB PO SCH (20:57)
[2021-04-14 21:42] LABS: SARS-CoV-2 PCR by NAA Not Detected (NotDetected)
[2021-04-14] MEDS: Octreotide Acetate 1,250 MCG in Sodium Chloride 0.9% 250 ML 250 ML IVPB SCH (21:53)
[2021-04-15] MEDS: Ondansetron PF 4 MG/2 ML Vial IVP PRN ×5 (02:09→20:28)
[2021-04-15] MEDS: traMADol HCl 50 MG TAB PO PRN ×3 (02:09→16:36)
[2021-04-15] MEDS: Rifaximin 550 MG TAB PO SCH ×2 (08:05→20:24)
[2021-04-15] MEDS: hydrOXYzine 25 MG TAB PO SCH ×4 (08:06→20:24)
[2021-04-15] MEDS: Midodrine HCl 5 MG TAB PO SCH ×3 (08:06→20:24)
[2021-04-15] MEDS: Pantoprazole 40 MG VIAL IVP SCH ×2 (08:07→20:25)
[2021-04-15 11:16] LABS: #Eosinphils 0.3 thou/uL (0.0-0.7); #Lymphocytes 0.7 thou/uL (1.20-3.40); #Monocytes 0.4 thou/uL (0.11-0.59); #Neutrophils 2.4 thou/uL (1.40-6.50); %Basophils 1.2 % (0.0-1.0); %Eosinophils 7.6 % (0.0-10.0); %Lymphocytes 17.4 % (21.0-51.0); %Monocytes 10.1 % (0.0-10.0); %Neutrophils 63.6 % (42.0-75.0); Hemoglobin 8.8 g/dL (14.0-18.0); Mean Corpuscular HGB CONC 32.8 g/dL (32.0-36.0); Mean Corpuscular Hemoglobin 31.3 pg (27.0-31.0); Mean Corpuscular Volume 95.2 fL (78.0-98.0); Mean Platelet Volume 8.9 fL (7.4-10.4); Platelet Count 84 thou/uL (130-400); RBC Distribution Width 17.6 % (11.5-14.5); Red Blood Cell (RBC) Count 2.81 mill/uL (4.70-6.10); White Blood Cell (WBC) Count 3.8 thou/uL (4.8-10.8)
[2021-04-15 11:29] LABS: Calcium 8.9 mg/dL (7.8-10.44); Chloride 107 mmol/L (98-107); Potassium 3.7 mmol/L (3.5-5.1); Sodium 132 mmol/L (136-145)
[2021-04-15 11:39] LABS: Anion Gap 14 mmol/L (10-20); BUN (Urea Nitrogen) 32 mg/dL (8.9-20.6); Calc. Creatinine Clearance 46 mL/min (70-130); Carbon Dioxide 16 mmol/L (22-29); Glucose 124 mg/dL (70-105)
[2021-04-15] MEDS: cefTRIAXone\\ROCEPHIN 1 GM in Sodium Chloride 0.9% 100 ML IVPB SCH (12:06)
[2021-04-15] MEDS: Sodium Chloride 0.9% 1,000 ML IV SCH ×2 (12:07→18:01)
[2021-04-15] MEDS: Albumin 25% 25 GM/100 ML BOT IVPB SCH ×2 (13:27→18:02)
[2021-04-15] MEDS: Nicotine 14 MG PATCH TD SCH (16:53)
[2021-04-15] MEDS ORDERED: Albumin 25% 25 GM/100 ML BOT IVPB SCH ×2 (17:15→18:00)
[2021-04-15] MEDS: Melatonin 3 MG TAB PO SCH (20:24)
[2021-04-16] MEDS: Albumin 25% 25 GM/100 ML BOT IVPB SCH ×2 (00:21→05:30)
[2021-04-16] MEDS: Ondansetron PF 4 MG/2 ML Vial IVP PRN ×6 (00:21→21:13)
[2021-04-16] MEDS: traMADol HCl 50 MG TAB PO PRN ×2 (00:21→05:31)
[2021-04-16] MEDS ORDERED: Lidocaine 1% PF 5 ML VIAL ONE (07:58)
[2021-04-16] MEDS ORDERED: Sodium Bicarbonate 2.5 MEQ/5 ML VIAL ONE (07:58)
[2021-04-16 09:06] LABS: #Eosinphils 0.2 thou/uL (0.0-0.7); #Lymphocytes 0.4 thou/uL (1.20-3.40); #Monocytes 0.3 thou/uL (0.11-0.59); #Neutrophils 1.4 thou/uL (1.40-6.50); %Basophils 1.8 % (0.0-1.0); %Lymphocytes 18.6 % (21.0-51.0); %Neutrophils 61.6 % (42.0-75.0); Hemoglobin 7.2 g/dL (14.0-18.0); Mean Corpuscular HGB CONC 32.6 g/dL (32.0-36.0); Mean Corpuscular Hemoglobin 31.1 pg (27.0-31.0); Mean Corpuscular Volume 95.7 fL (78.0-98.0); Mean Platelet Volume 8.7 fL (7.4-10.4); Platelet Count 73 thou/uL (130-400); RBC Distribution Width 17.9 % (11.5-14.5); Red Blood Cell (RBC) Count 2.33 mill/uL (4.70-6.10); White Blood Cell (WBC) Count 2.3 thou/uL (4.8-10.8)
[2021-04-16 09:11] LABS: ALT (SGPT) 13 U/L (8-55); AST (SGOT) 40 U/L (5-34); Albumin 4.4 g/dL (3.5-5.0); Alkaline Phosphatase 198 U/L (40-110); Anion Gap 13 mmol/L (10-20); BUN (Urea Nitrogen) 31 mg/dL (8.9-20.6); Bilirubin, Total 1.3 mg/dL (0.2-1.2); Calc. Creatinine Clearance 46 mL/min (70-130); Carbon Dioxide 16 mmol/L (22-29); Chloride 106 mmol/L (98-107); Glucose 110 mg/dL (70-105); Magnesium 1.6 mg/dL (1.6-2.6); Potassium 3.4 mmol/L (3.5-5.1); Protein, Total 6.4 g/dL (6.0-8.3); Sodium 132 mmol/L (136-145)
[2021-04-16] MEDS: Rifaximin 550 MG TAB PO SCH ×2 (09:49→21:10)
[2021-04-16] MEDS: hydrOXYzine 25 MG TAB PO SCH ×4 (09:49→21:10)
[2021-04-16] MEDS: Octreotide Acetate 1,250 MCG in Sodium Chloride 0.9% 250 ML 250 ML IVPB SCH (09:49)
[2021-04-16] MEDS: Midodrine HCl 5 MG TAB PO SCH ×3 (09:49→21:10)
[2021-04-16] MEDS: Pantoprazole 40 MG VIAL IVP SCH ×2 (09:49→21:10)
[2021-04-16 11:51] LABS: RBC Count-Automated (BF) 562 /cu.mm; WBC/Nucleated-Auto (BF) 160 /cu.mm
[2021-04-16 12:27] LABS: BF Color Yellow; Body Fluid Source Ascites Body Fluid; Clarity Cloudy/Turbid (Clear); Tube # EDTA
[2021-04-16] MEDS: cefTRIAXone\\ROCEPHIN 1 GM in Sodium Chloride 0.9% 100 ML IVPB SCH (12:33)
[2021-04-16 12:35] LABS: BF Segmented Neutrophils 3 %; Cell Count Non Hematic 76 %; Lymphocytes 21 %
[2021-04-16] MEDS: Nicotine 14 MG PATCH TD SCH (16:59)
[2021-04-16] MEDS ORDERED: Potassium Chloride 20 MEQ TAB PO SCH (17:15)
[2021-04-16] MEDS: Sodium Chloride 0.9% 1,000 ML IV SCH (17:17)
[2021-04-16] MEDS: Melatonin 3 MG TAB PO SCH (21:10)
[2021-04-17] MEDS: Ondansetron PF 4 MG/2 ML Vial IVP PRN ×6 (01:23→23:31)
[2021-04-17] MEDS: hydrOXYzine 25 MG TAB PO SCH ×4 (08:39→20:19)
[2021-04-17] MEDS: Rifaximin 550 MG TAB PO SCH ×2 (08:39→20:19)
[2021-04-17] MEDS: Midodrine HCl 5 MG TAB PO SCH ×3 (08:39→20:19)
[2021-04-17] MEDS: Pantoprazole 40 MG VIAL IVP SCH ×2 (08:39→20:18)
[2021-04-17 12:15] LABS: Anion Gap 12 mmol/L (10-20); BUN (Urea Nitrogen) 25 mg/dL (8.9-20.6); Calc. Creatinine Clearance 49 mL/min (70-130); Calcium 9.3 mg/dL (7.8-10.44); Carbon Dioxide 17 mmol/L (22-29); Chloride 107 mmol/L (98-107); Glucose 97 mg/dL (70-105); Potassium 3.8 mmol/L (3.5-5.1); Sodium 132 mmol/L (136-145)
[2021-04-17] MEDS ORDERED: Promethazine 25 MG TAB PO PRN (12:59)
[2021-04-17] MEDS: Nicotine 14 MG PATCH TD SCH (17:57)
[2021-04-17] MEDS: Sodium Chloride 0.9% 1,000 ML IV SCH (18:00)
[2021-04-17] MEDS: Octreotide Acetate 1,250 MCG in Sodium Chloride 0.9% 250 ML 250 ML IVPB SCH (20:18)
[2021-04-17] MEDS: Melatonin 3 MG TAB PO SCH (20:19)
[2021-04-18] MEDS: Ondansetron PF 4 MG/2 ML Vial IVP PRN ×5 (04:55→22:30)
[2021-04-18 07:31] LABS: #Eosinphils 0.1 thou/uL (0.0-0.7); #Lymphocytes 0.4 thou/uL (1.20-3.40); #Monocytes 0.2 thou/uL (0.11-0.59); #Neutrophils 1.2 thou/uL (1.40-6.50); %Basophils 1.7 % (0.0-1.0); %Eosinophils 6.9 % (0.0-10.0); %Lymphocytes 19.6 % (21.0-51.0); %Monocytes 11.8 % (0.0-10.0); Hemoglobin 7.4 g/dL (14.0-18.0); Mean Corpuscular HGB CONC 32.8 g/dL (32.0-36.0); Mean Corpuscular Hemoglobin 31.8 pg (27.0-31.0); Mean Corpuscular Volume 97.1 fL (78.0-98.0); Mean Platelet Volume 8.8 fL (7.4-10.4); Platelet Count 75 thou/uL (130-400); RBC Distribution Width 18.5 % (11.5-14.5); Red Blood Cell (RBC) Count 2.32 mill/uL (4.70-6.10)
[2021-04-18 07:40] LABS: Anion Gap 13 mmol/L (10-20); BUN (Urea Nitrogen) 24 mg/dL (8.9-20.6); Calc. Creatinine Clearance 49 mL/min (70-130); Calcium 8.6 mg/dL (7.8-10.44); Carbon Dioxide 15 mmol/L (22-29); Chloride 110 mmol/L (98-107); Glucose 117 mg/dL (70-105); Potassium 3.8 mmol/L (3.5-5.1); Sodium 134 mmol/L (136-145)
[2021-04-18] MEDS: hydrOXYzine 25 MG TAB PO SCH ×4 (08:40→20:40)
[2021-04-18] MEDS: Pantoprazole 40 MG VIAL IVP SCH ×2 (08:40→20:40)
[2021-04-18] MEDS: Rifaximin 550 MG TAB PO SCH ×2 (08:40→20:40)
[2021-04-18] MEDS: Midodrine HCl 5 MG TAB PO SCH ×3 (08:40→20:40)
[2021-04-18] MEDS: Nicotine 14 MG PATCH TD SCH (16:19)
[2021-04-18] MEDS: Albumin 25% 25 GM/100 ML BOT IVPB SCH (20:38)
[2021-04-18] MEDS: Melatonin 3 MG TAB PO SCH (20:40)
[2021-04-18] MEDS: Sodium Chloride 0.9% 1,000 ML IV SCH (20:41)
[2021-04-19] MEDS: Ondansetron PF 4 MG/2 ML Vial IVP PRN ×4 (02:05→21:48)
[2021-04-19] MEDS: Octreotide Acetate 1,250 MCG in Sodium Chloride 0.9% 250 ML 250 ML IVPB SCH (04:43)
[2021-04-19 08:06] LABS: #Eosinphils 0.2 thou/uL (0.0-0.7); #Lymphocytes 0.5 thou/uL (1.20-3.40); #Monocytes 0.2 thou/uL (0.11-0.59); #Neutrophils 1.5 thou/uL (1.40-6.50); %Basophils 1.5 % (0.0-1.0); %Eosinophils 7.1 % (0.0-10.0); %Lymphocytes 18.9 % (21.0-51.0); %Monocytes 10.3 % (0.0-10.0); %Neutrophils 62.2 % (42.0-75.0); Hemoglobin 7.5 g/dL (14.0-18.0); Mean Corpuscular HGB CONC 32.6 g/dL (32.0-36.0); Mean Corpuscular Hemoglobin 31.3 pg (27.0-31.0); Mean Corpuscular Volume 95.7 fL (78.0-98.0); Mean Platelet Volume 8.5 fL (7.4-10.4); Platelet Count 76 thou/uL (130-400); RBC Distribution Width 18.8 % (11.5-14.5); Red Blood Cell (RBC) Count 2.39 mill/uL (4.70-6.10); White Blood Cell (WBC) Count 2.4 thou/uL (4.8-10.8)
[2021-04-19 08:12] LABS: Anion Gap 13 mmol/L (10-20); BUN (Urea Nitrogen) 23 mg/dL (8.9-20.6); Calc. Creatinine Clearance 42 mL/min (70-130); Calcium 8.8 mg/dL (7.8-10.44); Carbon Dioxide 15 mmol/L (22-29); Chloride 110 mmol/L (98-107); Glucose 122 mg/dL (70-105); Potassium 3.7 mmol/L (3.5-5.1); Sodium 134 mmol/L (136-145)
[2021-04-19] MEDS: Albumin 25% 25 GM/100 ML BOT IVPB SCH ×3 (08:21→21:57)
[2021-04-19] MEDS: hydrOXYzine 25 MG TAB PO SCH ×4 (08:21→22:51)
[2021-04-19] MEDS: Midodrine HCl 5 MG TAB PO SCH ×3 (08:22→21:55)
[2021-04-19] MEDS: Rifaximin 550 MG TAB PO SCH ×2 (08:22→21:55)
[2021-04-19] MEDS: Pantoprazole 40 MG VIAL IVP SCH ×2 (08:22→22:51)
[2021-04-19] MEDS ORDERED: Lidocaine 1% PF 5 ML VIAL ONE (08:46)
[2021-04-19] MEDS ORDERED: Sodium Bicarbonate 2.5 MEQ/5 ML VIAL ONE (08:46)
[2021-04-19 14:24] LABS: RBC Count-Automated (BF) 421 /cu.mm; WBC/Nucleated-Auto (BF) 160 /cu.mm
[2021-04-19 14:27] LABS: BF Color Yellow; Body Fluid Source Peritoneal Fluid; Clarity Hazy (Clear); Tube # EDTA
[2021-04-19 14:50] LABS: BF Segmented Neutrophils 9 %; Cell Count Non Hematic 65 %; Eosinophils 1 %; Lymphocytes 23 %
[2021-04-19] MEDS: Sodium Chloride 0.9% 1,000 ML IV SCH (16:45)
[2021-04-19] MEDS: Nicotine 14 MG PATCH TD SCH (16:45)
[2021-04-19] MEDS: Melatonin 3 MG TAB PO SCH (21:55)
[2021-04-20] MEDS: Ondansetron PF 4 MG/2 ML Vial IVP PRN ×3 (05:25→14:00)
[2021-04-20] MEDS: Pantoprazole 40 MG VIAL IVP SCH (08:06)
[2021-04-20] MEDS: Midodrine HCl 5 MG TAB PO SCH ×2 (08:08→14:47)
[2021-04-20] MEDS: hydrOXYzine 25 MG TAB PO SCH ×2 (08:08→14:05)
[2021-04-20] MEDS: Rifaximin 550 MG TAB PO SCH (08:08)
[2021-04-20 08:12] LABS: Anion Gap 11 mmol/L (10-20); BUN (Urea Nitrogen) 21 mg/dL (8.9-20.6); Calc. Creatinine Clearance 43 mL/min (70-130); Calcium 9.2 mg/dL (7.8-10.44); Carbon Dioxide 18 mmol/L (22-29); Chloride 112 mmol/L (98-107); Glucose 126 mg/dL (70-105); Potassium 3.9 mmol/L (3.5-5.1); Sodium 137 mmol/L (136-145)
[2021-04-20 08:28] VITALS: BP 105/67; TEMP 98.1
[2021-04-20 10:40] VITALS: BMI 25.3
[2021-04-20] MEDS ORDERED: Octreotide Acetate 100 MCG/ML VIAL SC SCH (14:00)
== END 2021-04-20 16:30 | disposition home or self-care (01) | DRG 432 ==
LOC: ERS 10:07 → T4-A 16:34
PROVIDERS: ADMIT Internal Medicine; ATTEND Internal Medicine
PROC: 0W9G3ZZ Drainage of Peritoneal Cavity, Percutaneous Approach (ICD-10-PCS; principal; 2021-04-07)
PROC: 06L38CZ Occlusion of Esophageal Vein with Extraluminal Device, Via Natural or Artificial Opening Endoscopic (ICD-10-PCS; 2021-04-12)
PROC: 0W9G3ZZ Drainage of Peritoneal Cavity, Percutaneous Approach (ICD-10-PCS; 2021-04-16)
PROC: 0W9G3ZZ Drainage of Peritoneal Cavity, Percutaneous Approach (ICD-10-PCS; 2021-04-19)
DX: K70.31 Alcoholic cirrhosis of liver with ascites (principal); Z20.822 Contact with and (suspected) exposure to COVID-19; K72.00 Acute and subacute hepatic failure without coma; K76.7 Hepatorenal syndrome; G92.8 Other toxic encephalopathy; K76.6 Portal hypertension; I85.10 Secondary esophageal varices without bleeding; E87.1 Hypo-osmolality and hyponatremia; N17.9 Acute kidney failure, unspecified; E87.2 Acidosis; C22.0 Liver cell carcinoma; N18.5 Chronic kidney disease, stage 5; I12.0 Hypertensive chronic kidney disease with stage 5 chronic kidney disease or end stage renal disease; D61.818 Other pancytopenia; K31.89 Other diseases of stomach and duodenum; F17.210 Nicotine dependence, cigarettes, uncomplicated; K71.3 Toxic liver disease with chronic persistent hepatitis; R94.31 Abnormal electrocardiogram [ECG] [EKG]; F10.11 Alcohol abuse, in remission; D63.1 Anemia in chronic kidney disease; I95.9 Hypotension, unspecified; E88.09 Other disorders of plasma-protein metabolism, not elsewhere classified; E87.6 Hypokalemia; E16.2 Hypoglycemia, unspecified; Z28.21 Immunization not carried out because of patient refusal; Z79.899 Other long term (current) drug therapy; Z90.49 Acquired absence of other specified parts of digestive tract; Z71.41 Alcohol abuse counseling and surveillance of alcoholic; Z86.19 Personal history of other infectious and parasitic diseases
CPT/HCPCS: 36415; 49083; 51701; 80048; 80053; 81003; 82140; 82945; 83605; 83615; 83690; 83735; 84157; 85025; 85027; 85060; 85610; 87040; 87070; 87205; 89051; 93005; 93010; 96365; 96367; C9113; J0696; J1650; J2354; J2405; J3010; J3490; J7050; P9045; P9047; U0003; U0005

== ENCOUNTER 2021-08-05 10:42 | Emergency (ER) | payer OTHER ==
[2021-08-05] MEDS ORDERED: Ondansetron PF 4 MG/2 ML Vial ONE (11:47)
[2021-08-05 12:15] LABS: ALT (SGPT) 29 U/L (8-55); AST (SGOT) 80 U/L (5-34); Albumin 3.7 g/dL (3.5-5.0); Alkaline Phosphatase 391 U/L (40-110); Anion Gap 17 mmol/L (10-20); BUN (Urea Nitrogen) 31 mg/dL (8.4-25.7); Bilirubin, Total 9.7 mg/dL (0.2-1.2); CK (CPK) 25 U/L (30-200); Calc. Creatinine Clearance 0 mL/min (70-130); Calcium 8.8 mg/dL (7.8-10.44); Carbon Dioxide 20 mmol/L (22-29); Chloride 91 mmol/L (98-107); Globulin 2.5 g/dL (2.4-3.5); Glucose 148 mg/dL (70-105); Lipase 129 U/L (8-78); Potassium 3.2 mmol/L (3.5-5.1); Protein, Total 6.2 g/dL (6.0-8.3); Sodium 125 mmol/L (136-145)
[2021-08-05 13:56] LABS: #Basophils 0.1 thou/uL (0.0-0.2); #Eosinphils 0.2 thou/uL (0.0-0.7); #Lymphocytes 1.1 thou/uL (1.20-3.40); #Monocytes 0.4 thou/uL (0.11-0.59); #Neutrophils 5.5 thou/uL (1.40-6.50); %Basophils 0.7 % (0.0-1.0); %Eosinophils 2.1 % (0.0-10.0); %Lymphocytes 14.9 % (21.0-51.0); %Neutrophils 77.3 % (42.0-75.0); Mean Corpuscular HGB CONC 31.5 g/dL (32.0-36.0); Mean Platelet Volume 8.1 fL (7.4-10.4); Platelet Count 91 thou/uL (130-400); RBC Distribution Width 19.5 % (11.5-14.5); Red Blood Cell (RBC) Count 3.13 mill/uL (4.70-6.10); White Blood Cell (WBC) Count 7.1 thou/uL (4.8-10.8)
[2021-08-05 14:09] LABS: Anisocytosis SLIGHT = 6-15 cells (100X) (0-5/hpf); Hypochromia SLIGHT = 6-15 cells (100X) (0-5/hpf); MDiff Complete? YES; Macrocytosis MODERATE=16-30 cells (100X) (0-5/hpf); Ovalocytes SLIGHT = 2-5 cells (100X) (0-1/hpf); Platelet Morphology Comment Appears Decreased; Polychromasia SLIGHT = 2-3 cells (100X) (0-2/hpf); Target Cells SLIGHT = 2-5 cells (100X) (0-1/hpf)
== END 2021-08-05 14:50 | disposition home or self-care (01) ==
LOC: ERS 10:42
DX: R11.0 Nausea (principal); Z85.05 Personal history of malignant neoplasm of liver; F17.220 Nicotine dependence, chewing tobacco, uncomplicated; Z79.899 Other long term (current) drug therapy
CPT/HCPCS: 71045; 80053; 82550; 83690; 84484; 85025; 93005; 96361; 96374; J2405

== ENCOUNTER 2021-08-13 15:29 | Inpatient (IN) | payer OTHER ==
[2021-08-13 18:14] LABS: #Basophils 0.1 thou/uL (0.0-0.2); #Eosinphils 0.1 thou/uL (0.0-0.7); #Monocytes 0.3 thou/uL (0.11-0.59); #Neutrophils 5.9 thou/uL (1.40-6.50); %Basophils 0.7 % (0.0-1.0); %Eosinophils 1.2 % (0.0-10.0); %Lymphocytes 13.4 % (21.0-51.0); %Monocytes 4.3 % (0.0-10.0); %Neutrophils 80.4 % (42.0-75.0); Hemoglobin 9.3 g/dL (14.0-18.0); Mean Corpuscular HGB CONC 31.8 g/dL (32.0-36.0); Mean Corpuscular Hemoglobin 35.6 pg (27.0-31.0); Mean Platelet Volume 7.3 fL (7.4-10.4); Platelet Count 83 thou/uL (130-400); RBC Distribution Width 19.2 % (11.5-14.5); Red Blood Cell (RBC) Count 2.61 mill/uL (4.70-6.10); White Blood Cell (WBC) Count 7.3 thou/uL (4.8-10.8)
[2021-08-13 18:35] LABS: ALT (SGPT) 31 U/L (8-55); AST (SGOT) 84 U/L (5-34); Albumin 3.4 g/dL (3.5-5.0); Alkaline Phosphatase 344 U/L (40-110); Anion Gap 21 mmol/L (10-20); BUN (Urea Nitrogen) 41 mg/dL (8.4-25.7); Bilirubin, Total 13.6 mg/dL (0.2-1.2); Calc. Creatinine Clearance 0 mL/min (70-130); Calcium 8.9 mg/dL (7.8-10.44); Carbon Dioxide 17 mmol/L (22-29); Chloride 90 mmol/L (98-107); Globulin 2.1 g/dL (2.4-3.5); Glucose 95 mg/dL (70-105); Lipase 111 U/L (8-78); Magnesium 1.7 mg/dL (1.6-2.6); Potassium 3.9 mmol/L (3.5-5.1); Protein, Total 5.5 g/dL (6.0-8.3); Sodium 124 mmol/L (136-145)
[2021-08-13] MEDS ORDERED: Ondansetron PF 4 MG/2 ML Vial IVP PRN (21:34)
[2021-08-13] MEDS ORDERED: HYDROcodone/Acetaminophen 7.5/325 mg Tablet PO PRN (21:34)
[2021-08-13] MEDS ORDERED: traMADol HCl 50 MG TAB PO PRN (21:36)
[2021-08-13 22:38] LABS: Acetaminophen Less than 10.0 mcg/mL (10.0-30.0); Alcohol Less than 10 mg/dL (Less than 10); Salicylate Less than 8.0 mg/dL (15.0-30.0)
[2021-08-13 23:08] VITALS: BMI 21.3
[2021-08-13] MEDS: Dextrose 5 % And 0.9 % NaCl 1,000 ML IV SCH (23:38)
[2021-08-13] MEDS: Nicotine 14 MG PATCH TD SCH (23:39)
[2021-08-13] MEDS: Midodrine HCl 5 MG TAB PO SCH (23:42)
[2021-08-14 05:20] LABS: ALT (SGPT) 29 U/L (8-55); AST (SGOT) 82 U/L (5-34); Albumin 3.3 g/dL (3.5-5.0); Alkaline Phosphatase 331 U/L (40-110); Anion Gap 18 mmol/L (10-20); BUN (Urea Nitrogen) 46 mg/dL (8.4-25.7); Bilirubin, Total 13.5 mg/dL (0.2-1.2); Calc. Creatinine Clearance 10 mL/min (70-130); Calcium 8.7 mg/dL (7.8-10.44); Carbon Dioxide 20 mmol/L (22-29); Chloride 91 mmol/L (98-107); Globulin 2.1 g/dL (2.4-3.5); Glucose 118 mg/dL (70-105); Potassium 3.8 mmol/L (3.5-5.1); Protein, Total 5.4 g/dL (6.0-8.3); Sodium 125 mmol/L (136-145)
[2021-08-14] MEDS: Midodrine HCl 5 MG TAB PO SCH ×4 (05:25→20:23)
[2021-08-14] MEDS ORDERED: Heparin 10,000 UNITS/ 10 ML VIAL ONE (08:50)
[2021-08-14] MEDS: Rifaximin 550 MG TAB PO SCH ×2 (09:49→20:22)
[2021-08-14] MEDS ORDERED: Iopamidol 370 76% 100 ML VIAL ONE (10:00)
[2021-08-14] MEDS: Dextrose 5 % And 0.9 % NaCl 1,000 ML IV SCH (11:55)
[2021-08-14] MEDS ORDERED: Metoclopramide HCl 10 MG/2 ML VIAL IVP SCH (12:00)
[2021-08-14 12:23] LABS: SARS-CoV-2 PCR by NAA Not Detected (NotDetected)
[2021-08-14] MEDS ORDERED: Prochlorperazine Edisylate 10 MG in Sodium Chloride 0.9% 50 ML IVPB PRN (15:11)
[2021-08-14] MEDS ORDERED: hydrOXYzine 25 MG TAB PO PRN (15:12)
[2021-08-14] MEDS ORDERED: Ondansetron PF 4 MG/2 ML Vial IVP PRN (15:13)
[2021-08-14] MEDS ORDERED: Ondansetron ODT 4 MG TAB PO PRN (19:11)
[2021-08-14] MEDS: Sodium Bicarbonate Tab 325 MG TAB PO SCH (20:22)
[2021-08-14] MEDS: Metoclopramide HCl 10 MG/2 ML VIAL IVP SCH (20:22)
[2021-08-14] MEDS: Potassium Chloride 20 MEQ TAB PO SCH (20:22)
[2021-08-14] MEDS: hydrOXYzine 25 MG TAB PO SCH (20:23)
[2021-08-14] MEDS: Nicotine 14 MG PATCH TD SCH (20:23)
[2021-08-14] MEDS: ALPRAZolam 0.5 MG TAB PO SCH (20:23)
[2021-08-15] MEDS: Rifaximin 550 MG TAB PO SCH ×2 (00:20→13:51)
[2021-08-15] MEDS: Potassium Chloride 20 MEQ TAB PO SCH ×2 (00:20→13:51)
[2021-08-15 04:45] LABS: #Eosinphils 0.1 thou/uL (0.0-0.7); #Monocytes 0.5 thou/uL (0.11-0.59); %Eosinophils 1.3 % (0.0-10.0); %Lymphocytes 17.6 % (21.0-51.0); %Monocytes 8.9 % (0.0-10.0); %Neutrophils 72.1 % (42.0-75.0); Hemoglobin 8.3 g/dL (14.0-18.0); Mean Corpuscular HGB CONC 33.7 g/dL (32.0-36.0); Mean Corpuscular Hemoglobin 36.2 pg (27.0-31.0); Mean Platelet Volume 7.9 fL (7.4-10.4); Platelet Count 61 thou/uL (130-400); RBC Distribution Width 19.2 % (11.5-14.5); Red Blood Cell (RBC) Count 2.28 mill/uL (4.70-6.10); White Blood Cell (WBC) Count 5.5 thou/uL (4.8-10.8)
[2021-08-15 04:55] LABS: INR-International Normal Ratio 1.5
[2021-08-15] MEDS: Midodrine HCl 5 MG TAB PO SCH (05:16)
[2021-08-15] MEDS: Dextrose 5 % And 0.9 % NaCl 1,000 ML IV SCH (05:17)
[2021-08-15 05:24] LABS: Anion Gap 15 mmol/L (10-20); BUN (Urea Nitrogen) 32 mg/dL (8.4-25.7); Calc. Creatinine Clearance 14 mL/min (70-130); Carbon Dioxide 22 mmol/L (22-29); Chloride 93 mmol/L (98-107); Potassium 3.5 mmol/L (3.5-5.1); Sodium 126 mmol/L (136-145)
[2021-08-15 05:25] LABS: ALT (SGPT) 31 U/L (8-55); AST (SGOT) 94 U/L (5-34); Albumin 2.9 g/dL (3.5-5.0); Alkaline Phosphatase 307 U/L (40-110); Bilirubin, Total 10.4 mg/dL (0.2-1.2); Calcium 8.3 mg/dL (7.8-10.44); Globulin 1.9 g/dL (2.4-3.5); Glucose 146 mg/dL (70-105); Protein, Total 4.8 g/dL (6.0-8.3)
[2021-08-15 08:00] VITALS: BP 90/55; TEMP 98
[2021-08-15] MEDS: hydrOXYzine 25 MG TAB PO SCH (13:50)
[2021-08-15] MEDS: Metoclopramide HCl 10 MG/2 ML VIAL IVP SCH (13:50)
[2021-08-15] MEDS: ALPRAZolam 0.5 MG TAB PO SCH (13:50)
[2021-08-15] MEDS: Sodium Bicarbonate Tab 325 MG TAB PO SCH (13:51)
== END 2021-08-15 15:59 | disposition home or self-care (01) | DRG 640 ==
LOC: ERS 15:29 → 2SW 21:04 → OBSVTOIN 08-14 16:09
PROVIDERS: ADMIT Hospitalist; ATTEND Hospitalist
PROC: 5A1D70Z Performance of Urinary Filtration, Intermittent, Less than 6 Hours Per Day (ICD-10-PCS; principal; 2021-08-13)
DX: E87.1 Hypo-osmolality and hyponatremia (principal); N18.6 End stage renal disease; K76.6 Portal hypertension; C22.0 Liver cell carcinoma; I12.0 Hypertensive chronic kidney disease with stage 5 chronic kidney disease or end stage renal disease; C78.00 Secondary malignant neoplasm of unspecified lung; D62 Acute posthemorrhagic anemia; N17.9 Acute kidney failure, unspecified; K70.31 Alcoholic cirrhosis of liver with ascites; Z20.822 Contact with and (suspected) exposure to COVID-19; B18.2 Chronic viral hepatitis C; K31.89 Other diseases of stomach and duodenum; F17.210 Nicotine dependence, cigarettes, uncomplicated; E87.2 Acidosis; D63.1 Anemia in chronic kidney disease; E86.0 Dehydration; Z99.2 Dependence on renal dialysis; Z90.49 Acquired absence of other specified parts of digestive tract
CPT/HCPCS: 36415; 71260; 74177; 80053; 80307; 82140; 83690; 83735; 84484; 85025; 85610; 87040; 90935; 93005; 96374; 96375; G0257; G0378; J1644; J2405; J2765; J7042; Q9967; U0003; U0005